=== PATIENT | male | born 1995 | race Two or more races ===

== ENCOUNTER → 2021-10-19 | Outpatient (REF) | payer MEDICAID ==
[2021-10-19 18:01] LABS: ALBUMIN 3.9 GM/DL (3.2-5.2); ALT/SGPT 84 U/L (12-78); BILIRUBIN,DIRECT < 0.1 MG/DL (0.0-0.2); BILIRUBIN,TOTAL 0.3 MG/DL (0.2-1.0); TOTAL PROTEIN 8.1 GM/DL (6.4-8.2)
== END ==
LOC: M LABDRWAD 16:59
PROVIDERS: ATTEND Student in an Organized Health Care Education/Training Program
DX: R74.8 Abnormal levels of other serum enzymes (principal)

== ENCOUNTER 2022-01-19 20:08 | Inpatient (IN) | payer MEDICAID ==
[~2022-01-19] VITALS: Ht 142.2 cm; Wt 42.6 kg
[2022-01-19] MEDS ORDERED: LACO10SO GT (20:23)
[2022-01-19] MEDS ORDERED: GABA250S6 PO (20:23)
[2022-01-19] MEDS ORDERED: DORZ2SOL5 OS (20:23)
[2022-01-19] MEDS ORDERED: KEPP1SOL PO (20:23)
[2022-01-19] MEDS ORDERED: POLY510P14 (20:23)
[2022-01-19] MEDS ORDERED: SUCR1ORA GT (20:23)
[2022-01-19] MEDS ORDERED: DIAZ2.5G2 (20:23)
[2022-01-19] MEDS ORDERED: BACL10TA2 GT (20:23)
[2022-01-19] MEDS ORDERED: NS 500 ML IV ONE (21:50)
[2022-01-19] MEDS ORDERED: ACETAMINOPHEN IV ONE (21:50)
[2022-01-19] MEDS ORDERED: PIPERACILLIN/TAZOBACTAM SOD 3.375 GM in D5W MINI-BAG PLUS 50 ML IV ONE (21:55)
[2022-01-19 21:57] LABS: BASO % 0.2 % (0.0-1.0); EOS # 0.1 10^3/uL (0.0-0.5); EOS % 0.9 % (0.0-3.0); HEMATOCRIT 53.8 % (42.0-52.0); HEMOGLOBIN 17.9 g/dl (13.5-17.5); LYMPH # 1.1 10^3/uL (1.5-5.0); LYMPH % 12.5 % (24.0-44.0); MEAN CORPUSCULAR HEMOGLOBIN 28.9 pg (27.0-33.0); MEAN CORPUSCULAR HGB CONC 33.3 g/dl (32.0-36.5); MEAN CORPUSCULAR VOLUME 86.8 fl (80.0-96.0); MONO # 0.9 10^3/uL (0.0-0.8); MONO % 10.5 % (2.0-8.0); NEUTROPHILS # 6.7 10^3/uL (1.5-8.5); NEUTROPHILS % 75.7 % (36.0-66.0); PLATELET COUNT, AUTOMATED 180 10^3/uL (150-450); WHITE BLOOD COUNT 8.9 10^3/uL (4.0-10.0)
[2022-01-19 22:27] LABS: BLOOD UREA NITROGEN 8 MG/DL (7-18); CALCIUM LEVEL 9.8 MG/DL (8.5-10.1); CARBON DIOXIDE LEVEL 24 MEQ/L (21-32); CHLORIDE LEVEL 106 MEQ/L (98-107); CREATININE FOR GFR 0.73 MG/DL (0.70-1.30); GLOMERULAR FILTRATION RATE > 60.0 (>60); GLUCOSE, FASTING 133 MG/DL (70-100); POTASSIUM SERUM 5.5 MEQ/L (3.5-5.1); SODIUM LEVEL 136 MEQ/L (136-145)
[2022-01-19] MEDS ORDERED: HOME MED LIST COMPLETE! XX SCH (22:45)
[2022-01-20] MEDS: NS 1,000 ML IV SCH ×2 (00:35→15:52)
[2022-01-20] MEDS ORDERED: POTASSIUM CHLORIDE 10% LIQ 20 MEQ/15 ML UDC GT ONE (02:20)
[2022-01-20] MEDS: PIPERACILLIN/TAZOBACTAM SOD 3.375 GM in D5W MINI-BAG PLUS 50 ML IV SCH ×4 (05:00→23:10)
[2022-01-20] MEDS: HEPARIN SOD (PORCINE) 5000UNITS/ML 1ML VIAL/SYRINGE SQ SCH ×3 (05:20→23:10)
[2022-01-20] MEDS ORDERED: ACETAMINOPHEN *IV* 650 MG in IV 1 EA IV PRN (06:00)
[2022-01-20] MEDS: SUCRALFATE SUSP 1GM/10ML UD GT SCH ×4 (08:49→23:07)
[2022-01-20] MEDS: levETIRAcetam ORAL SOLUTION 500 MG/5 ML UDC GT SCH ×2 (08:49→23:07)
[2022-01-20] MEDS: PANTOPRAZOLE 40MG VIAL IV SCH (08:49)
[2022-01-20] MEDS ORDERED: LACOSAMIDE 50 MG TAB (VIMPAT) GT SCH (09:00)
[2022-01-20] MEDS: VIMPAT 10 MG/ML GT SCH ×2 (10:52→23:15)
[2022-01-20] MEDS: GABAPENTIN 250 MG/5 ML GT SCH ×2 (10:54→21:00)
[2022-01-20] MEDS: COSOPT OCUMETER PLUS 10ML (DORZOLAMIDE/TIMOLOL) OS SCH ×2 (12:50→23:08)
[2022-01-20 16:41] LABS: BASO % 0.4 % (0.0-1.0); EOS # 0.2 10^3/uL (0.0-0.5); EOS % 3.5 % (0.0-3.0); HEMATOCRIT 46.6 % (42.0-52.0); LYMPH # 1.9 10^3/uL (1.5-5.0); LYMPH % 36.9 % (24.0-44.0); MEAN CORPUSCULAR HEMOGLOBIN 28.5 pg (27.0-33.0); MEAN CORPUSCULAR HGB CONC 31.8 g/dl (32.0-36.5); MEAN CORPUSCULAR VOLUME 89.6 fl (80.0-96.0); MONO # 0.7 10^3/uL (0.0-0.8); MONO % 13.3 % (2.0-8.0); NEUTROPHILS # 2.3 10^3/uL (1.5-8.5); NEUTROPHILS % 45.9 % (36.0-66.0); PLATELET COUNT, AUTOMATED 145 10^3/uL (150-450); WHITE BLOOD COUNT 5.1 10^3/uL (4.0-10.0)
[2022-01-20 16:49] LABS: HEMOGLOBIN 14.8 g/dl (13.5-17.5)
[2022-01-20 17:12] LABS: ALT/SGPT 62 U/L (12-78); BILIRUBIN,TOTAL 0.4 MG/DL (0.2-1.0); BLOOD UREA NITROGEN 7 MG/DL (7-18); CALCIUM LEVEL 8.6 MG/DL (8.5-10.1); CARBON DIOXIDE LEVEL 24 MEQ/L (21-32); CHLORIDE LEVEL 113 MEQ/L (98-107); CREATININE FOR GFR 0.67 MG/DL (0.70-1.30); GLOMERULAR FILTRATION RATE > 60.0 (>60); GLUCOSE, FASTING 103 MG/DL (70-100); MAGNESIUM LEVEL 2.1 MG/DL (1.8-2.4); POTASSIUM SERUM 4.1 MEQ/L (3.5-5.1); SODIUM LEVEL 141 MEQ/L (136-145); TOTAL PROTEIN 7.2 GM/DL (6.4-8.2)
[2022-01-20 20:34] VITALS: BP 121/67
[2022-01-21] VITALS (17 sets, daily range): BP systolic 97–106; BP diastolic 54–64; O2SAT 92–96
[2022-01-21] MEDS: NS 1,000 ML IV SCH (04:30)
[2022-01-21] MEDS: PIPERACILLIN/TAZOBACTAM SOD 3.375 GM in D5W MINI-BAG PLUS 50 ML IV SCH ×4 (05:39→22:20)
[2022-01-21] MEDS: HEPARIN SOD (PORCINE) 5000UNITS/ML 1ML VIAL/SYRINGE SQ SCH ×3 (05:39→21:33)
[2022-01-21 05:59] LABS: BASO % 0.3 % (0.0-1.0); EOS # 0.2 10^3/uL (0.0-0.5); EOS % 3.3 % (0.0-3.0); HEMATOCRIT 41.7 % (42.0-52.0); HEMOGLOBIN 13.7 g/dl (13.5-17.5); LYMPH # 1.5 10^3/uL (1.5-5.0); MEAN CORPUSCULAR HGB CONC 32.9 g/dl (32.0-36.5); MEAN CORPUSCULAR VOLUME 88.2 fl (80.0-96.0); MONO # 0.7 10^3/uL (0.0-0.8); MONO % 11.5 % (2.0-8.0); NEUTROPHILS # 3.4 10^3/uL (1.5-8.5); NEUTROPHILS % 58.7 % (36.0-66.0); PLATELET COUNT, AUTOMATED 146 10^3/uL (150-450); RED BLOOD COUNT 4.73 10^6/uL (4.30-6.10); WHITE BLOOD COUNT 5.8 10^3/uL (4.0-10.0)
[2022-01-21 06:31] LABS: ALBUMIN 2.8 GM/DL (3.2-5.2); ALT/SGPT 55 U/L (12-78); BILIRUBIN,TOTAL 0.3 MG/DL (0.2-1.0); BLOOD UREA NITROGEN 7 MG/DL (7-18); CALCIUM LEVEL 8.6 MG/DL (8.5-10.1); CARBON DIOXIDE LEVEL 24 MEQ/L (21-32); CHLORIDE LEVEL 113 MEQ/L (98-107); CREATININE FOR GFR 0.54 MG/DL (0.70-1.30); GLOMERULAR FILTRATION RATE > 60.0 (>60); GLUCOSE, FASTING 106 MG/DL (70-100); SODIUM LEVEL 141 MEQ/L (136-145); TOTAL PROTEIN 6.3 GM/DL (6.4-8.2)
[2022-01-21 08:48] LABS: C REACTIVE PROTEIN QUANTITATIV 4.19 MG/DL (0.00-0.30)
[2022-01-21] MEDS: POTASSIUM CHLORIDE 10% LIQ 20 MEQ/15 ML UDC PO SCH (10:12)
[2022-01-21] MEDS: SUCRALFATE SUSP 1GM/10ML UD GT SCH ×4 (10:13→21:34)
[2022-01-21] MEDS: levETIRAcetam ORAL SOLUTION 500 MG/5 ML UDC GT SCH ×2 (10:13→21:33)
[2022-01-21] MEDS: PANTOPRAZOLE 40MG VIAL IV SCH (10:16)
[2022-01-21] MEDS: VIMPAT 10 MG/ML GT SCH ×2 (10:23→21:00)
[2022-01-21] MEDS: COSOPT OCUMETER PLUS 10ML (DORZOLAMIDE/TIMOLOL) OS SCH ×2 (10:23→21:39)
[2022-01-21] MEDS: GABAPENTIN 250 MG/5 ML GT SCH ×2 (11:40→21:38)
[2022-01-22] VITALS (14 sets, daily range): BP systolic 93–120; BP diastolic 50–65; O2SAT 93–98
[2022-01-22] MEDS: PIPERACILLIN/TAZOBACTAM SOD 3.375 GM in D5W MINI-BAG PLUS 50 ML IV SCH ×3 (05:20→16:35)
[2022-01-22] MEDS: HEPARIN SOD (PORCINE) 5000UNITS/ML 1ML VIAL/SYRINGE SQ SCH ×3 (05:28→22:00)
[2022-01-22 06:01] LABS: BASO % 0.4 % (0.0-1.0); EOS # 0.3 10^3/uL (0.0-0.5); HEMATOCRIT 46.7 % (42.0-52.0); HEMOGLOBIN 15.1 g/dl (13.5-17.5); LYMPH # 2.4 10^3/uL (1.5-5.0); LYMPH % 47.5 % (24.0-44.0); MEAN CORPUSCULAR HEMOGLOBIN 28.2 pg (27.0-33.0); MEAN CORPUSCULAR HGB CONC 32.3 g/dl (32.0-36.5); MEAN CORPUSCULAR VOLUME 87.1 fl (80.0-96.0); MONO # 0.7 10^3/uL (0.0-0.8); MONO % 13.7 % (2.0-8.0); NEUTROPHILS # 1.7 10^3/uL (1.5-8.5); NEUTROPHILS % 33.2 % (36.0-66.0); PLATELET COUNT, AUTOMATED 166 10^3/uL (150-450); RED BLOOD COUNT 5.36 10^6/uL (4.30-6.10); WHITE BLOOD COUNT 5.1 10^3/uL (4.0-10.0)
[2022-01-22 06:40] LABS: ALBUMIN 3.1 GM/DL (3.2-5.2); ALT/SGPT 52 U/L (12-78); BILIRUBIN,TOTAL 0.3 MG/DL (0.2-1.0); BLOOD UREA NITROGEN 7 MG/DL (7-18); CALCIUM LEVEL 9.4 MG/DL (8.5-10.1); CARBON DIOXIDE LEVEL 24 MEQ/L (21-32); CHLORIDE LEVEL 109 MEQ/L (98-107); CREATININE FOR GFR 0.58 MG/DL (0.70-1.30); GLOMERULAR FILTRATION RATE > 60.0 (>60); GLUCOSE, FASTING 106 MG/DL (70-100); SODIUM LEVEL 142 MEQ/L (136-145); TOTAL PROTEIN 7.1 GM/DL (6.4-8.2)
[2022-01-22] MEDS: PANTOPRAZOLE 40MG VIAL IV SCH (08:58)
[2022-01-22] MEDS: levETIRAcetam ORAL SOLUTION 500 MG/5 ML UDC GT SCH (09:01)
[2022-01-22] MEDS: SUCRALFATE SUSP 1GM/10ML UD GT SCH ×3 (09:01→18:00)
[2022-01-22] MEDS: GABAPENTIN 250 MG/5 ML GT SCH (09:02)
[2022-01-22] MEDS: COSOPT OCUMETER PLUS 10ML (DORZOLAMIDE/TIMOLOL) OS SCH ×2 (09:02→22:24)
[2022-01-22] MEDS: POTASSIUM CHLORIDE 10% LIQ 20 MEQ/15 ML UDC PO SCH (09:02)
[2022-01-22] MEDS: VIMPAT 10 MG/ML GT SCH (09:11)
[2022-01-22] MEDS: BACLOFEN 10 MG TAB GT SCH ×2 (12:00→16:34)
[2022-01-22 23:09] LABS: HEMOGLOBIN 16.3 g/dl (13.5-17.5); MEAN CORPUSCULAR HEMOGLOBIN 28.3 pg (27.0-33.0); MEAN CORPUSCULAR VOLUME 88.7 fl (80.0-96.0); PLATELET COUNT, AUTOMATED 166 10^3/uL (150-450); RED BLOOD COUNT 5.75 10^6/uL (4.30-6.10)
[2022-01-23] VITALS (20 sets, daily range): BP systolic 99–127; BP diastolic 57–94; O2SAT 92–100
[2022-01-23] MEDS: levETIRAcetam ORAL SOLUTION 500 MG/5 ML UDC GT SCH ×3 (01:01→22:21)
[2022-01-23] MEDS: PIPERACILLIN/TAZOBACTAM SOD 3.375 GM in D5W MINI-BAG PLUS 50 ML IV SCH ×3 (01:01→10:03)
[2022-01-23] MEDS: BACLOFEN 10 MG TAB GT SCH ×4 (01:01→22:20)
[2022-01-23] MEDS: SUCRALFATE SUSP 1GM/10ML UD GT SCH ×5 (01:02→22:20)
[2022-01-23] MEDS: GABAPENTIN 250 MG/5 ML GT SCH ×3 (01:02→22:21)
[2022-01-23] MEDS: VIMPAT 10 MG/ML GT SCH ×3 (01:03→22:20)
[2022-01-23 06:58] LABS: BASO % 0.6 % (0.0-1.0); EOS # 0.2 10^3/uL (0.0-0.5); EOS % 4.3 % (0.0-3.0); HEMATOCRIT 47.3 % (42.0-52.0); HEMOGLOBIN 15.5 g/dl (13.5-17.5); LYMPH # 1.8 10^3/uL (1.5-5.0); LYMPH % 33.8 % (24.0-44.0); MEAN CORPUSCULAR HEMOGLOBIN 28.3 pg (27.0-33.0); MEAN CORPUSCULAR HGB CONC 32.8 g/dl (32.0-36.5); MEAN CORPUSCULAR VOLUME 86.5 fl (80.0-96.0); MONO # 0.6 10^3/uL (0.0-0.8); MONO % 11.2 % (2.0-8.0); NEUTROPHILS # 2.7 10^3/uL (1.5-8.5); NEUTROPHILS % 49.7 % (36.0-66.0); PLATELET COUNT, AUTOMATED 196 10^3/uL (150-450); RED BLOOD COUNT 5.47 10^6/uL (4.30-6.10); WHITE BLOOD COUNT 5.4 10^3/uL (4.0-10.0)
[2022-01-23 07:13] LABS: INR 0.94
[2022-01-23 07:14] LABS: PARTIAL THROMBOPLASTIN TIME 38.9 SECONDS (25.9-37.0)
[2022-01-23 07:27] LABS: ALBUMIN 3.1 GM/DL (3.2-5.2); ALT/SGPT 49 U/L (12-78); BILIRUBIN,TOTAL 0.3 MG/DL (0.2-1.0); BLOOD UREA NITROGEN 7 MG/DL (7-18); CALCIUM LEVEL 9.4 MG/DL (8.5-10.1); CARBON DIOXIDE LEVEL 24 MEQ/L (21-32); CHLORIDE LEVEL 107 MEQ/L (98-107); CREATININE FOR GFR 0.64 MG/DL (0.70-1.30); GLOMERULAR FILTRATION RATE > 60.0 (>60); GLUCOSE, FASTING 132 MG/DL (70-100); POTASSIUM SERUM 3.7 MEQ/L (3.5-5.1); SODIUM LEVEL 140 MEQ/L (136-145); TOTAL PROTEIN 7.8 GM/DL (6.4-8.2)
[2022-01-23] MEDS: PANTOPRAZOLE 40MG VIAL IV SCH (10:02)
[2022-01-23] MEDS: POTASSIUM CHLORIDE 10% LIQ 20 MEQ/15 ML UDC PO SCH (10:05)
[2022-01-23] MEDS: COSOPT OCUMETER PLUS 10ML (DORZOLAMIDE/TIMOLOL) OS SCH ×2 (10:06→22:21)
[2022-01-23] MEDS ORDERED: OXYMETAZOLINE 0.05% NASAL SPRAY (AFRIN) STA (13:22)
[2022-01-23 13:41] LABS: HEMATOCRIT 50.7 % (42.0-52.0); HEMOGLOBIN 16.2 g/dl (13.5-17.5); MEAN CORPUSCULAR HEMOGLOBIN 28.3 pg (27.0-33.0); MEAN CORPUSCULAR VOLUME 88.5 fl (80.0-96.0); PLATELET COUNT, AUTOMATED 204 10^3/uL (150-450); RED BLOOD COUNT 5.73 10^6/uL (4.30-6.10); WHITE BLOOD COUNT 6.1 10^3/uL (4.0-10.0)
[2022-01-23 13:56] LABS: INR 0.97; PROTHROMBIN TIME 13.3 SECONDS (12.7-14.5)
[2022-01-23 13:57] LABS: PARTIAL THROMBOPLASTIN TIME 35.4 SECONDS (25.9-37.0)
[2022-01-23 14:04] LABS: ALBUMIN 3.5 GM/DL (3.2-5.2); ALT/SGPT 52 U/L (12-78); BILIRUBIN,TOTAL 0.4 MG/DL (0.2-1.0); BLOOD UREA NITROGEN 7 MG/DL (7-18); CALCIUM LEVEL 9.9 MG/DL (8.5-10.1); CARBON DIOXIDE LEVEL 22 MEQ/L (21-32); CHLORIDE LEVEL 108 MEQ/L (98-107); CREATININE FOR GFR 0.76 MG/DL (0.70-1.30); GLOMERULAR FILTRATION RATE > 60.0 (>60); GLUCOSE, FASTING 119 MG/DL (70-100); POTASSIUM SERUM 4.6 MEQ/L (3.5-5.1); SODIUM LEVEL 141 MEQ/L (136-145); TOTAL PROTEIN 7.9 GM/DL (6.4-8.2)
[2022-01-24] VITALS (23 sets, daily range): BP systolic 111–140; BP diastolic 57–89; O2SAT 94–100
[2022-01-24 06:38] LABS: BASO % 0.4 % (0.0-1.0); EOS # 0.1 10^3/uL (0.0-0.5); EOS % 2.6 % (0.0-3.0); HEMOGLOBIN 16.1 g/dl (13.5-17.5); LYMPH # 1.6 10^3/uL (1.5-5.0); LYMPH % 36.1 % (24.0-44.0); MEAN CORPUSCULAR HEMOGLOBIN 28.7 pg (27.0-33.0); MEAN CORPUSCULAR HGB CONC 32.9 g/dl (32.0-36.5); MEAN CORPUSCULAR VOLUME 87.3 fl (80.0-96.0); MONO # 0.5 10^3/uL (0.0-0.8); NEUTROPHILS # 2.2 10^3/uL (1.5-8.5); NEUTROPHILS % 49.5 % (36.0-66.0); PLATELET COUNT, AUTOMATED 214 10^3/uL (150-450); RED BLOOD COUNT 5.61 10^6/uL (4.30-6.10); WHITE BLOOD COUNT 4.5 10^3/uL (4.0-10.0)
[2022-01-24 07:09] LABS: ALBUMIN 3.2 GM/DL (3.2-5.2); ALT/SGPT 49 U/L (12-78); BILIRUBIN,TOTAL 0.3 MG/DL (0.2-1.0); BLOOD UREA NITROGEN 6 MG/DL (7-18); CALCIUM LEVEL 9.6 MG/DL (8.5-10.1); CARBON DIOXIDE LEVEL 21 MEQ/L (21-32); CHLORIDE LEVEL 107 MEQ/L (98-107); CREATININE FOR GFR 0.55 MG/DL (0.70-1.30); GLOMERULAR FILTRATION RATE > 60.0 (>60); GLUCOSE, FASTING 112 MG/DL (70-100); POTASSIUM SERUM 4.1 MEQ/L (3.5-5.1); SODIUM LEVEL 139 MEQ/L (136-145); TOTAL PROTEIN 7.5 GM/DL (6.4-8.2)
[2022-01-24] MEDS: levETIRAcetam ORAL SOLUTION 500 MG/5 ML UDC GT SCH ×2 (09:54→20:24)
[2022-01-24] MEDS: BACLOFEN 10 MG TAB GT SCH ×3 (09:56→20:24)
[2022-01-24] MEDS: POTASSIUM CHLORIDE 10% LIQ 20 MEQ/15 ML UDC PO SCH (09:56)
[2022-01-24] MEDS: SUCRALFATE SUSP 1GM/10ML UD GT SCH ×4 (09:56→20:24)
[2022-01-24] MEDS: GABAPENTIN 250 MG/5 ML GT SCH ×2 (09:57→20:25)
[2022-01-24] MEDS: PANTOPRAZOLE 40MG VIAL IV SCH (09:57)
[2022-01-24] MEDS: COSOPT OCUMETER PLUS 10ML (DORZOLAMIDE/TIMOLOL) OS SCH ×2 (10:10→21:00)
[2022-01-24] MEDS: VIMPAT 10 MG/ML GT SCH ×2 (10:13→21:40)
[2022-01-24] MEDS ORDERED: propofoL 200 MG/20 ML VIAL As Ordered ONE (13:05)
[2022-01-24] MEDS ORDERED: dexameTHASONE 4 MG/ML 1ML VIAL (J1100 PER 1MG) As Ordered ONE (13:05)
[2022-01-24] MEDS ORDERED: ROCURONIUM BROMIDE 50 MG/5 ML VIAL As Ordered ONE ×2 (13:05→15:01)
[2022-01-24] MEDS ORDERED: ONDANSETRON 4MG/2ML VIAL As Ordered ONE (13:05)
[2022-01-24] MEDS ORDERED: LIDOCAINE 2% 100MG/5ML SDV (FOR ANES.) As Ordered ONE (13:05)
[2022-01-24] MEDS ORDERED: PIPERACILLIN/TAZOBACTAM SOD 4.5 GM in D5W MINI-BAG PLUS 50 ML IV SCH ×3 (14:00)
[2022-01-24] MEDS ORDERED: KETAMINE HCL 200 MG/20 ML VIAL As Ordered ONE (14:21)
[2022-01-24] MEDS ORDERED: MIDAZOLAM INJ 2MG/2ML VIAL (J2250 PER 1MG) As Ordered ONE (14:22)
[2022-01-24] MEDS ORDERED: fentaNYL 100 MCG/2 ML INJECTION As Ordered ONE (14:22)
[2022-01-24] MEDS ORDERED: SUGAMMADEX SODIUM 500 MG/5 ML VIAL (BRIDION) As Ordered ONE (14:33)
[2022-01-24] MEDS ORDERED: LIDOCAINE W/EPINEPHRINE 1% 20ML VIAL As Ordered ONE (14:57)
[2022-01-24] MEDS ORDERED: PHENYLephrine 500MCG 5ML (100MCG/ML) SYRINGE As Ordered ONE (15:09)
[2022-01-24] MEDS ORDERED: ONDANSETRON 4MG/2ML VIAL IV PRN (16:05)
[2022-01-24] MEDS ORDERED: fentaNYL 100 MCG/2 ML INJECTION IV PRN (16:05)
[2022-01-24] MEDS ORDERED: D5W/LR 1,000 ML IV SCH (18:45)
[2022-01-24] MEDS: PIPERACILLIN/TAZOBACTAM SOD 4.5 GM in D5W MINI-BAG PLUS 50 ML IV SCH (23:56)
[2022-01-25] VITALS (30 sets, daily range): BP systolic 114–170; BP diastolic 55–93
[2022-01-25 05:08] LABS: BASO % 0.1 % (0.0-1.0); HEMATOCRIT 42.4 % (42.0-52.0); LYMPH # 1.7 10^3/uL (1.5-5.0); LYMPH % 21.6 % (24.0-44.0); MEAN CORPUSCULAR HEMOGLOBIN 28.3 pg (27.0-33.0); MEAN CORPUSCULAR HGB CONC 32.5 g/dl (32.0-36.5); MEAN CORPUSCULAR VOLUME 87.1 fl (80.0-96.0); MONO # 0.9 10^3/uL (0.0-0.8); MONO % 11.4 % (2.0-8.0); NEUTROPHILS # 5.3 10^3/uL (1.5-8.5); NEUTROPHILS % 66.4 % (36.0-66.0); PLATELET COUNT, AUTOMATED 208 10^3/uL (150-450); RED BLOOD COUNT 4.87 10^6/uL (4.30-6.10)
[2022-01-25] MEDS: PIPERACILLIN/TAZOBACTAM SOD 4.5 GM in D5W MINI-BAG PLUS 50 ML IV SCH ×4 (05:12→23:51)
[2022-01-25 05:18] LABS: HEMOGLOBIN 13.8 g/dl (13.5-17.5)
[2022-01-25 05:41] LABS: ALBUMIN 2.8 GM/DL (3.2-5.2); ALT/SGPT 41 U/L (12-78); BILIRUBIN,TOTAL 0.3 MG/DL (0.2-1.0); BLOOD UREA NITROGEN 5 MG/DL (7-18); CALCIUM LEVEL 9.4 MG/DL (8.5-10.1); CARBON DIOXIDE LEVEL 24 MEQ/L (21-32); CHLORIDE LEVEL 109 MEQ/L (98-107); CREATININE FOR GFR 0.69 MG/DL (0.70-1.30); GLOMERULAR FILTRATION RATE > 60.0 (>60); GLUCOSE, FASTING 193 MG/DL (70-100); POTASSIUM SERUM 3.6 MEQ/L (3.5-5.1); SODIUM LEVEL 141 MEQ/L (136-145); TOTAL PROTEIN 7.3 GM/DL (6.4-8.2)
[2022-01-25] MEDS ORDERED: LACTOBACILLUS ACIDOPHILUS CAP (BACID) PO SCH (08:00)
[2022-01-25] MEDS: PANTOPRAZOLE 40MG VIAL IV SCH (08:04)
[2022-01-25] MEDS: SUCRALFATE SUSP 1GM/10ML UD GT SCH ×4 (08:04→21:08)
[2022-01-25] MEDS: POTASSIUM CHLORIDE 10% LIQ 20 MEQ/15 ML UDC PO SCH (09:11)
[2022-01-25] MEDS: levETIRAcetam ORAL SOLUTION 500 MG/5 ML UDC GT SCH ×2 (09:12→21:09)
[2022-01-25] MEDS: BACLOFEN 10 MG TAB GT SCH ×3 (09:15→21:09)
[2022-01-25] MEDS: COSOPT OCUMETER PLUS 10ML (DORZOLAMIDE/TIMOLOL) OS SCH ×2 (09:15→21:20)
[2022-01-25] MEDS: VIMPAT 10 MG/ML GT SCH ×2 (09:15→21:17)
[2022-01-25] MEDS ORDERED: MORPHINE 2 MG/ML 1ML VIAL IV PRN (09:15)
[2022-01-25] MEDS: GABAPENTIN 250 MG/5 ML GT SCH ×2 (09:16→21:18)
[2022-01-26] VITALS: BP 129/86
[2022-01-26 04:00] VITALS: BP 108/61
[2022-01-26 05:46] LABS: HEMATOCRIT 44.2 % (42.0-52.0); HEMOGLOBIN 14.5 g/dl (13.5-17.5); MEAN CORPUSCULAR HEMOGLOBIN 28.7 pg (27.0-33.0); MEAN CORPUSCULAR HGB CONC 32.8 g/dl (32.0-36.5); MEAN CORPUSCULAR VOLUME 87.4 fl (80.0-96.0); PLATELET COUNT, AUTOMATED 209 10^3/uL (150-450); RED BLOOD COUNT 5.06 10^6/uL (4.30-6.10); WHITE BLOOD COUNT 6.9 10^3/uL (4.0-10.0)
[2022-01-26] MEDS: PIPERACILLIN/TAZOBACTAM SOD 4.5 GM in D5W MINI-BAG PLUS 50 ML IV SCH ×2 (06:14→12:00)
[2022-01-26 06:21] LABS: ALBUMIN 2.9 GM/DL (3.2-5.2); ALT/SGPT 36 U/L (12-78); BILIRUBIN,TOTAL 0.3 MG/DL (0.2-1.0); BLOOD UREA NITROGEN 6 MG/DL (7-18); CALCIUM LEVEL 8.9 MG/DL (8.5-10.1); CARBON DIOXIDE LEVEL 26 MEQ/L (21-32); CHLORIDE LEVEL 108 MEQ/L (98-107); CREATININE FOR GFR 0.72 MG/DL (0.70-1.30); GLOMERULAR FILTRATION RATE > 60.0 (>60); GLUCOSE, FASTING 152 MG/DL (70-100); POTASSIUM SERUM 3.7 MEQ/L (3.5-5.1); SODIUM LEVEL 141 MEQ/L (136-145)
[2022-01-26] MEDS ORDERED: AMOX400S PEG (08:05)
[2022-01-26 08:33] VITALS: BP 103/66
[2022-01-26] MEDS: levETIRAcetam ORAL SOLUTION 500 MG/5 ML UDC GT SCH (09:13)
[2022-01-26] MEDS: POTASSIUM CHLORIDE 10% LIQ 20 MEQ/15 ML UDC PO SCH (09:14)
[2022-01-26] MEDS: BACLOFEN 10 MG TAB GT SCH (09:14)
[2022-01-26] MEDS: SUCRALFATE SUSP 1GM/10ML UD GT SCH ×2 (09:14→12:00)
[2022-01-26] MEDS: VIMPAT 10 MG/ML GT SCH (09:18)
[2022-01-26] MEDS: PANTOPRAZOLE 40MG VIAL IV SCH (09:19)
[2022-01-26] MEDS: GABAPENTIN 250 MG/5 ML GT SCH (09:19)
[2022-01-26] MEDS: COSOPT OCUMETER PLUS 10ML (DORZOLAMIDE/TIMOLOL) OS SCH (09:19)
[2022-01-26] MEDS ORDERED: SALI0.6530 NARES (10:15)
[2022-01-26] MEDS ORDERED: ACET650S3 PR (10:15)
== END 2022-01-26 14:17 | disposition home health service (06) | DRG 121 ==
LOC: M ED 20:08 → M ED INP 23:41 → M PCU 01-20 20:43 → M ICU 01-24 16:37 → M PCU 01-25 17:38
PROVIDERS: ADMIT Family Medicine; ATTEND Internal Medicine
PROC: 2Y41X5Z Packing of Nasal Region using Packing Material (ICD-10-PCS; principal; 2022-01-23)
PROC: 093K8ZZ Control Bleeding in Nasal Mucosa and Soft Tissue, Via Natural or Artificial Opening Endoscopic (ICD-10-PCS; 2022-01-24)
PROC: 09D Ear, Nose, Sinus, Extraction (ICD-10-PCS; 2022-01-24)
DX: J69.0 Pneumonitis due to inhalation of food and vomit (principal); R13.10 Dysphagia, unspecified; J98.11 Atelectasis; Z93.1 Gastrostomy status; G80.1 Spastic diplegic cerebral palsy; Z99.2 Dependence on renal dialysis; E73.9 Lactose intolerance, unspecified; E87.6 Hypokalemia; H40.9 Unspecified glaucoma; R04.0 Epistaxis; K21.9 Gastro-esophageal reflux disease without esophagitis; Z79.899 Other long term (current) drug therapy

== ENCOUNTER → 2022-02-27 | Outpatient (POV) | payer MEDICAID ==
[~2022-02-27] VITALS: Ht 139.7 cm; Wt 40.9 kg
[~2022-02-27] MED LIST: ACET650S3 PR; AMOX400S PEG; BACL10TA2 GT; DIAZ2.5G2; DORZ2SOL5 OS; GABA250S6 PO; KEPP1SOL PO; LACO10SO GT; POLY510P14; SALI0.6530 NARES; SUCR1ORA GT
[2022-02-27 11:05] VITALS: BP 133/95
== END ==
LOC: M IRPOV 10:45
PROVIDERS: ATTEND Radiology Diagnostic Radiology
DX: G80.9 Cerebral palsy, unspecified (principal); Z79.899 Other long term (current) drug therapy; Z93.1 Gastrostomy status

== ENCOUNTER → 2022-03-11 | Outpatient (CLI) | payer MEDICAID | LOC: M LABSMTC 11:51 | PROVIDERS: ATTEND Anesthesiology | DX: Z01.818 Encounter for other preprocedural examination (principal); Z11.52 Encounter for screening for COVID-19 ==

== ENCOUNTER → 2022-03-15 | Outpatient (CLI) | payer MEDICAID ==
[~2022-03-15] MED LIST changes: +ISOVUE-300 61% 50ML VIAL As Ordered ONE; +LIDOCAINE 1% MDV 20ML VIAL As Ordered ONE
[2022-03-15 12:20] VITALS: BP 113/80
== END ==
LOC: M IRPRO 10:59
PROVIDERS: ATTEND Radiology Diagnostic Radiology
DX: K94.23 Gastrostomy malfunction (principal)
CPT/HCPCS: 43762; C1729; C1769; Q9967

== ENCOUNTER 2022-05-25 10:15 | Emergency (ER) | payer MEDICAID ==
[~2022-05-25 10:15] MED LIST changes: -ISOVUE-300 61% 50ML VIAL As Ordered ONE; -LIDOCAINE 1% MDV 20ML VIAL As Ordered ONE
[2022-05-25] MEDS ORDERED: LACOSAMIDE 10MG/ML 20ML VIAL (VIMPAT) IV STA (13:17)
[2022-05-25] MEDS ORDERED: levETIRAcetam INJection 1,000 MG in D5W 100 ML IV ONE (13:20)
[2022-05-25 13:42] LABS: RSV AMPLIFICATION NEGATIVE (NEGATIVE)
[2022-05-25 16:14] VITALS: BP 127/98
[2022-05-26] MEDS ORDERED: CLIN1SOL24 PO (15:11)
== END 2022-05-25 16:34 | disposition short-term general hospital (02) ==
LOC: M ED 10:15
DX: K94.23 Gastrostomy malfunction (principal); G80.9 Cerebral palsy, unspecified; Z88.6 Allergy status to analgesic agent; Z88.8 Allergy status to other drugs, medicaments and biological substances; Z91.040 Latex allergy status

== ENCOUNTER 2022-05-26 13:00 | Emergency (ER) | payer MEDICAID ==
[2022-05-26 14:33] LABS: BASO % 0.2 % (0.0-1.0); EOS % 0.1 % (0.0-3.0); HEMATOCRIT 51.8 % (42.0-52.0); HEMOGLOBIN 17.1 g/dl (13.5-17.5); LYMPH # 1.7 10^3/uL (1.5-5.0); LYMPH % 14.3 % (24.0-44.0); MEAN CORPUSCULAR HEMOGLOBIN 27.8 pg (27.0-33.0); MEAN CORPUSCULAR VOLUME 84.1 fl (80.0-96.0); MONO % 12.8 % (2.0-8.0); NEUTROPHILS # 8.6 10^3/uL (1.5-8.5); NEUTROPHILS % 72.1 % (36.0-66.0); PLATELET COUNT, AUTOMATED 172 10^3/uL (150-450); RED BLOOD COUNT 6.16 10^6/uL (4.30-6.10); WHITE BLOOD COUNT 11.9 10^3/uL (4.0-10.0)
[2022-05-26] MEDS ORDERED: LIDOCAINE 1% SDV 5ML VIAL DILUENT ONE (14:40)
[2022-05-26] MEDS ORDERED: cefTRIAXone SOD 1GM VIAL (J0696 PER 250MG) IM ONE (14:40)
[2022-05-26] MEDS ORDERED: CLIN1SOL24 PO (15:11)
[2022-05-26 15:19] LABS: MONO # 1.5 10^3/uL (0.0-0.8)
[2022-05-26 15:41] VITALS: BP 120/72
== END 2022-05-26 15:58 | disposition home or self-care (01) ==
LOC: M ED 13:00
DX: R50.9 Fever, unspecified (principal); G80.9 Cerebral palsy, unspecified; G40.909 Epilepsy, unspecified, not intractable, without status epilepticus; R91.8 Other nonspecific abnormal finding of lung field; Z93.1 Gastrostomy status
CPT/HCPCS: 71046; 80047; 85025; 87040; 96372; 99283; J0696

== ENCOUNTER → 2022-12-25 | Outpatient (POV) | payer MEDICAID ==
[~2022-12-25] VITALS: Ht 121.9 cm; Wt 43.0 kg
[~2022-12-25] MED LIST changes: +CLIN1SOL24 PO
[2022-12-25 10:35] VITALS: BP 125/78
== END ==
LOC: M IRPOV 10:25
PROVIDERS: ATTEND Radiology Diagnostic Radiology
DX: G80.9 Cerebral palsy, unspecified (principal); K94.29 Other complications of gastrostomy; Z88.6 Allergy status to analgesic agent; Z88.1 Allergy status to other antibiotic agents; Z88.8 Allergy status to other drugs, medicaments and biological substances; Z91.040 Latex allergy status

== ENCOUNTER → 2022-12-31 | Outpatient (CLI) | payer MEDICAID ==
[2022-12-31 17:12] LABS: C REACTIVE PROTEIN QUANTITATIV 0.6 MG/DL (<1.0)
[2022-12-31 17:13] LABS: THYROID STIMULATING HORMONE 3.627 uIU/ML (0.55-4.78)
[2022-12-31 17:14] LABS: FREE T4 0.93 NG/DL (0.89-1.76)
== END ==
LOC: M WUC 12:03
PROVIDERS: ATTEND Physician Assistant Medical
DX: R19.7 Diarrhea, unspecified (principal)

== ENCOUNTER → 2023-01-14 | Outpatient (CLI) | payer MEDICAID ==
[~2023-01-14] MED LIST changes: +GABA250S6 GT; -GABA250S6 PO; +ISOVUE-300 61% 100ML VIAL As Ordered ONE; +KEPP1SOL GT; -KEPP1SOL PO; +LIDOCAINE 1% MDV 20ML VIAL As Ordered ONE
[2023-01-14 13:00] VITALS: BP 99/68
== END ==
LOC: M IRPRO 11:23
PROVIDERS: ATTEND Radiology Diagnostic Radiology
DX: Z43.1 Encounter for attention to gastrostomy (principal); G80.9 Cerebral palsy, unspecified
CPT/HCPCS: 49452; C1729; C1769; Q9967

== ENCOUNTER → 2023-01-23 | Outpatient (CLI) | payer MEDICAID ==
[~2023-01-23] MED LIST changes: -ISOVUE-300 61% 100ML VIAL As Ordered ONE; -LIDOCAINE 1% MDV 20ML VIAL As Ordered ONE
== END ==
LOC: M WUC 11:26
PROVIDERS: ATTEND Family Medicine
DX: M25.552 Pain in left hip (principal)

== ENCOUNTER 2023-02-01 09:30 | Inpatient (IN) | payer MEDICAID ==
[~2023-02-01] VITALS: Ht 139.7 cm; Wt 47.9 kg
[2023-02-01] MEDS ORDERED: NS 1,000 ML IV ONE ×2 (09:45→13:45)
[2023-02-01] MEDS ORDERED: ALBUTEROL SULFATE 2.5MG/0.5ML INH NEB SOLN INH ONE (09:45)
[2023-02-01] MEDS ORDERED: IPRATROPIUM 0.5MG/ALBUTEROL 2.5MG INH SOL UD 3ML (DUONEB) NEB ONE (09:45)
[2023-02-01 10:10] LABS: ABG BASE EXCESS 9.8 (-2.0-2.0); ABG HCO3 36.1 MMOL/L (22.0-26.0); ABG O2 SATURATION 99.8 % (95.0-99.0); ABG PARTIAL PRESSURE CO2 52.9 mmHg (35.0-45.0); ABG STANDARD HCO3 33.7 MMOL/L. (22.0-26.0); ABG TOTAL CO2 37.7 MMOL/L (22.0-29.0); ABG pH (ARTERIAL) 7.452 UNITS (7.350-7.450)
[2023-02-01 11:17] LABS: BASO % 0.2 % (0.0-1.0); HEMATOCRIT 53.5 % (42.0-52.0); HEMOGLOBIN 17.6 g/dl (13.5-17.5); LYMPH # 0.9 10^3/uL (1.5-5.0); LYMPH % 5.8 % (24.0-44.0); MEAN CORPUSCULAR HEMOGLOBIN 27.8 pg (27.0-33.0); MEAN CORPUSCULAR HGB CONC 32.9 g/dl (32.0-36.5); MEAN CORPUSCULAR VOLUME 84.5 fl (80.0-96.0); MONO % 10.5 % (2.0-8.0); NEUTROPHILS # 12.3 10^3/uL (1.5-8.5); NEUTROPHILS % 83.2 % (36.0-66.0); PLATELET COUNT, AUTOMATED 231 10^3/uL (150-450); RED BLOOD COUNT 6.33 10^6/uL (4.30-6.10); WHITE BLOOD COUNT 14.8 10^3/uL (4.0-10.0)
[2023-02-01] MEDS ORDERED: DICY10CA13 GT (11:47)
[2023-02-01 11:51] LABS: MONO # 1.6 10^3/uL (0.0-0.8)
[2023-02-01 11:59] LABS: APPEARANCE, URINE CLOUDY (CLEAR); BACTERIA, URINE AUTO NEGATIVE (NEGATIVE); BILIRUBIN, URINE AUTO NEGATIVE (NEGATIVE); BLOOD, URINE BLOOD NEGATIVE (NEGATIVE); COLOR, URINE AMBER (YELLOW); GLUCOSE, URINE (UA) AUTO NEGATIVE (NEGATIVE); KETONE, URINE AUTO TRACE mg/dL (NEGATIVE); LEUKOCYTE ESTERASE, URINE AUTO NEGATIVE (NEGATIVE); NITRITE, URINE AUTO NEGATIVE (NEGATIVE); PROTEIN, URINE AUTO NEGATIVE (NEGATIVE); RBC, URINE AUTO 0 /HPF (0-3); SPECIFIC GRAVITY URINE AUTO 1.012 (1.002-1.035); SQUAMOUS EPITHELIAL CELL UR AU 0 /HPF (0-6); UROBILINOGEN, URINE AUTO 0.2 mg/dL (0.0-2.0); WBC, URINE AUTO 0 /HPF (0-3)
[2023-02-01] MEDS ORDERED: BACLOFEN 10 MG TAB PO ONE (12:25)
[2023-02-01] MEDS ORDERED: GABAPENTIN 100 MG CAP PEG ONE (12:25)
[2023-02-01 12:26] LABS: INR 0.97; PROTHROMBIN TIME 13.1 SECONDS (12.5-14.5)
[2023-02-01 12:27] LABS: PARTIAL THROMBOPLASTIN TIME 24.7 SECONDS (24.8-34.2)
[2023-02-01 12:56] LABS: CK-MB VALUE MASS < 1.0 NG/ML (<3.6)
[2023-02-01 12:57] LABS: AMYLASE 591 U/L (30-118)
[2023-02-01 12:58] LABS: ALBUMIN 2.8 G/DL (3.2-5.2); ALKALINE PHOSPHATASE 163 U/L (46-116); ALT/SGPT 57 U/L (7.0-40); AST/SGOT 34 U/L (<34); BILIRUBIN,DIRECT 0.2 MG/DL (<0.4); BILIRUBIN,TOTAL 0.5 MG/DL (0.3-1.2); BLOOD UREA NITROGEN 14 MG/DL (9-23); CALCIUM LEVEL 8.7 MG/DL (8.5-10.1); CARBON DIOXIDE LEVEL 30 MMOL/L (20-31); CHLORIDE LEVEL 100 MMOL/L (98-107); GLOMERULAR FILTRATION RATE > 60.0 (>60); GLUCOSE, FASTING 184 MG/DL (60-100); POTASSIUM SERUM 3.3 MMOL/L (3.5-5.1); SODIUM LEVEL 141 MMOL/L (136-145); TOTAL PROTEIN 7.5 G/DL (5.7-8.2)
[2023-02-01 12:59] LABS: CPK CREATINE PHOSPHOKINASE 36 U/L (46-171); MB/CK RELATIVE INDEX 2.77 (< OR =4)
[2023-02-01] MEDS ORDERED: NS 500 ML in IV 1 EA IV ONE (13:05)
[2023-02-01] MEDS ORDERED: PIPERACILLIN/TAZOBACTAM SOD 4.5 GM in D5W MINI-BAG PLUS 50 ML IV ONE (13:05)
[2023-02-01] MEDS ORDERED: PANTOPRAZOLE 40MG VIAL IV ONE (13:05)
[2023-02-01 14:07] LABS: LIPASE 1640 U/L (12-53)
[2023-02-01 14:26] LABS: CK-MB VALUE MASS < 1.0 NG/ML (<3.6)
[2023-02-01 14:28] LABS: CPK CREATINE PHOSPHOKINASE 44 U/L (46-171); MB/CK RELATIVE INDEX 2.27 (< OR =4)
[2023-02-01 14:57] LABS: TRIGLYCERIDES LEVEL 91 MG/DL (<150)
[2023-02-01] MEDS ORDERED: ONDANSETRON 4MG 2ML VIAL IV PRN (15:10)
[2023-02-01] MEDS ORDERED: HM S0.65 NARES (15:19)
[2023-02-01] MEDS ORDERED: MULTLIQ7 PO (15:31)
[2023-02-01] MEDS ORDERED: PYRI50TA8 GT (15:31)
[2023-02-01] MEDS ORDERED: PROBCAP14 PO (15:31)
[2023-02-01] MEDS ORDERED: OSCAL GT (15:31)
[2023-02-01] MEDS ORDERED: [UNRECOGNIZED DRUG - OTHER] GT (15:31)
[2023-02-01] MEDS ORDERED: PYRIDOXINE GT (15:31)
[2023-02-01] MEDS ORDERED: HOME MED LIST COMPLETE! XX SCH (15:35)
[2023-02-01] MEDS ORDERED: LIDOCAINE 1% MDV 20ML VIAL As Ordered ONE (15:40)
[2023-02-01] MEDS ORDERED: KCL 10MEQ/100ML SWI (KRUN) 10 MEQ in IV 1 EA IV ONE (16:00)
[2023-02-01] MEDS ORDERED: DICYCLOMINE 10 MG CAP GT PRN (17:40)
[2023-02-01] MEDS ORDERED: SODIUM CHLORIDE NASAL 0.65% SPRAY BTL (OCEAN) PRN (17:40)
[2023-02-01 18:00] VITALS: BP 156/105
[2023-02-01] MEDS ORDERED: PILL CUTTER 1 EACH XX PRN (18:10)
[2023-02-01] MEDS: ACETAMINOPHEN 650MG SUPP PR PRN (18:20)
[2023-02-01] MEDS ORDERED: LORazepam 2 MG/ML 1ML VIAL IV STA (19:42)
[2023-02-01] MEDS: levETIRAcetam INJection 1,000 MG in D5W 100 ML IV SCH (19:46)
[2023-02-01 19:51] VITALS: BP 157/98
[2023-02-01 20:18] LABS: BASO % 0.1 % (0.0-1.0); HEMOGLOBIN 16.1 g/dl (13.5-17.5); LYMPH # 0.9 10^3/uL (1.5-5.0); LYMPH % 5.8 % (24.0-44.0); MEAN CORPUSCULAR HEMOGLOBIN 27.6 pg (27.0-33.0); MEAN CORPUSCULAR HGB CONC 31.6 g/dl (32.0-36.5); MEAN CORPUSCULAR VOLUME 87.3 fl (80.0-96.0); MONO % 11.8 % (2.0-8.0); NEUTROPHILS # 12.4 10^3/uL (1.5-8.5); PLATELET COUNT, AUTOMATED 182 10^3/uL (150-450); RED BLOOD COUNT 5.84 10^6/uL (4.30-6.10); WHITE BLOOD COUNT 15.2 10^3/uL (4.0-10.0)
[2023-02-01] MEDS: PIPERACILLIN/TAZOBACTAM SOD 3.375 GM in D5W MINI-BAG PLUS 50 ML IV SCH (20:19)
[2023-02-01 20:24] LABS: ALBUMIN 2.7 G/DL (3.2-5.2); ALKALINE PHOSPHATASE 139 U/L (46-116); ALT/SGPT 50 U/L (7.0-40); AST/SGOT 38 U/L (<34); BILIRUBIN,TOTAL 0.6 MG/DL (0.3-1.2); BLOOD UREA NITROGEN 14 MG/DL (9-23); CALCIUM LEVEL 8.1 MG/DL (8.5-10.1); CARBON DIOXIDE LEVEL 28 MMOL/L (20-31); CHLORIDE LEVEL 103 MMOL/L (98-107); CREATININE FOR GFR 0.67 MG/DL (0.70-1.30); GLOMERULAR FILTRATION RATE > 60.0 (>60); GLUCOSE, FASTING 148 MG/DL (60-100); POTASSIUM SERUM 3.6 MMOL/L (3.5-5.1); SODIUM LEVEL 144 MMOL/L (136-145)
[2023-02-01 20:26] LABS: MONO # 1.8 10^3/uL (0.0-0.8)
[2023-02-01] MEDS ORDERED: LACOSAMIDE 10MG/ML 20ML VIAL (VIMPAT) IV STA ×2 (20:54→21:03)
[2023-02-01 21:00] VITALS: BP 131/76
[2023-02-01] MEDS: COSOPT OCUMETER PLUS 10ML (DORZOLAMIDE/TIMOLOL) OS SCH (21:00)
[2023-02-01] MEDS: BACLOFEN 10 MG TAB GT SCH (21:00)
[2023-02-01] MEDS ORDERED: LACOSAMIDE 50 MG TAB (VIMPAT) GT SCH (21:00)
[2023-02-01] MEDS: SUCRALFATE SUSP 1GM/10ML UD GT SCH (21:00)
[2023-02-01] MEDS: PANTOPRAZOLE 40MG VIAL IV SCH (22:06)
[2023-02-02] VITALS (18 sets, daily range): BP systolic 116–140; BP diastolic 59–82; O2SAT 88–96
[2023-02-02] MEDS: NS 1,000 ML IV SCH (00:47)
[2023-02-02] MEDS: PIPERACILLIN/TAZOBACTAM SOD 3.375 GM in D5W MINI-BAG PLUS 50 ML IV SCH ×4 (03:31→20:26)
[2023-02-02 07:03] LABS: ALBUMIN 2.2 G/DL (3.2-5.2); ALKALINE PHOSPHATASE 95 U/L (46-116); ALT/SGPT 33 U/L (7.0-40); AST/SGOT 25 U/L (<34); BILIRUBIN,TOTAL 0.7 MG/DL (0.3-1.2); BLOOD UREA NITROGEN 11 MG/DL (9-23); CALCIUM LEVEL 7.5 MG/DL (8.5-10.1); CARBON DIOXIDE LEVEL 32 MMOL/L (20-31); CHLORIDE LEVEL 107 MMOL/L (98-107); CREATININE FOR GFR 0.57 MG/DL (0.70-1.30); GLOMERULAR FILTRATION RATE > 60.0 (>60); GLUCOSE, FASTING 131 MG/DL (60-100); LIPASE 847 U/L (12-53); MAGNESIUM LEVEL 1.7 MG/DL (1.8-2.4); POTASSIUM SERUM 2.8 MMOL/L (3.5-5.1); SODIUM LEVEL 144 MMOL/L (136-145); TOTAL PROTEIN 5.7 G/DL (5.7-8.2)
[2023-02-02] MEDS: ACETAMINOPHEN 650MG SUPP PR PRN (07:05)
[2023-02-02 07:32] LABS: HEMATOCRIT 41.2 % (42.0-52.0); MEAN CORPUSCULAR HEMOGLOBIN 27.7 pg (27.0-33.0); MEAN CORPUSCULAR HGB CONC 32.3 g/dl (32.0-36.5); MEAN CORPUSCULAR VOLUME 85.8 fl (80.0-96.0); PLATELET COUNT, AUTOMATED 133 10^3/uL (150-450); WHITE BLOOD COUNT 11.8 10^3/uL (4.0-10.0)
[2023-02-02 07:36] LABS: HEMOGLOBIN 13.3 g/dl (13.5-17.5)
[2023-02-02] MEDS: KCL 20MEQ IN 100ML SWI (KRUN) 20 MEQ in IV 1 EA IV SCH ×4 (08:27→10:10)
[2023-02-02] MEDS: PANTOPRAZOLE 40MG VIAL IV SCH ×2 (08:27→20:27)
[2023-02-02] MEDS: PYRIDOXINE 50 MG TAB GT SCH ×2 (09:00→16:19)
[2023-02-02] MEDS: BACLOFEN 10 MG TAB GT SCH ×3 (09:00→20:27)
[2023-02-02] MEDS ORDERED: MAG SULF 1GM/100ML (MAG RUN) 1 GM in IV 1 EA IV ONE (09:00)
[2023-02-02] MEDS: levETIRAcetam INJection 1,000 MG in D5W 100 ML IV SCH ×2 (09:34→20:28)
[2023-02-02] MEDS: GABAPENTIN 100 MG CAP GT SCH ×2 (10:29→20:27)
[2023-02-02] MEDS: SUCRALFATE SUSP 1GM/10ML UD GT SCH ×2 (10:30→20:27)
[2023-02-02] MEDS: LACOSAMIDE 10MG/ML 20ML VIAL (VIMPAT) IV SCH ×2 (10:30→21:41)
[2023-02-02] MEDS: COSOPT OCUMETER PLUS 10ML (DORZOLAMIDE/TIMOLOL) OS SCH ×2 (11:02→20:28)
[2023-02-02] MEDS ORDERED: KCL 10MEQ/100ML SWI (KRUN) 10 MEQ in IV 1 EA IV ONE (18:00)
[2023-02-03] VITALS (25 sets, daily range): BP systolic 123–158; BP diastolic 75–96; O2SAT 91–95
[2023-02-03] MEDS: PIPERACILLIN/TAZOBACTAM SOD 3.375 GM in D5W MINI-BAG PLUS 50 ML IV SCH ×4 (03:30→19:55)
[2023-02-03] MEDS: NS 1,000 ML IV SCH ×2 (03:31→19:51)
[2023-02-03 06:14] LABS: BASO % 0.2 % (0.0-1.0); EOS # 0.1 10^3/uL (0.0-0.5); EOS % 0.6 % (0.0-3.0); HEMATOCRIT 35.5 % (42.0-52.0); HEMOGLOBIN 11.6 g/dl (13.5-17.5); LYMPH # 1.2 10^3/uL (1.5-5.0); LYMPH % 11.6 % (24.0-44.0); MEAN CORPUSCULAR HEMOGLOBIN 28.3 pg (27.0-33.0); MEAN CORPUSCULAR HGB CONC 32.7 g/dl (32.0-36.5); MEAN CORPUSCULAR VOLUME 86.6 fl (80.0-96.0); MONO # 1.2 10^3/uL (0.0-0.8); MONO % 11.4 % (2.0-8.0); NEUTROPHILS # 7.8 10^3/uL (1.5-8.5); NEUTROPHILS % 75.9 % (36.0-66.0); PLATELET COUNT, AUTOMATED 114 10^3/uL (150-450); WHITE BLOOD COUNT 10.2 10^3/uL (4.0-10.0)
[2023-02-03 06:37] LABS: LIPASE 182 U/L (12-53)
[2023-02-03 06:41] LABS: ALBUMIN 1.8 G/DL (3.2-5.2); ALKALINE PHOSPHATASE 75 U/L (46-116); ALT/SGPT 29 U/L (7.0-40); AST/SGOT 20 U/L (<34); BILIRUBIN,TOTAL 0.8 MG/DL (0.3-1.2); BLOOD UREA NITROGEN 8 MG/DL (9-23); CALCIUM LEVEL 7.4 MG/DL (8.5-10.1); CARBON DIOXIDE LEVEL 27 MMOL/L (20-31); CHLORIDE LEVEL 113 MMOL/L (98-107); GLOMERULAR FILTRATION RATE > 60.0 (>60); GLUCOSE, FASTING 106 MG/DL (60-100); MAGNESIUM LEVEL 1.5 MG/DL (1.8-2.4); POTASSIUM SERUM 3.5 MMOL/L (3.5-5.1); SODIUM LEVEL 144 MMOL/L (136-145); TOTAL PROTEIN 5.1 G/DL (5.7-8.2)
[2023-02-03] MEDS ORDERED: MAG SULF 1GM/100ML (MAG RUN) 1 GM in IV 1 EA IV ONE (08:00)
[2023-02-03] MEDS: PANTOPRAZOLE 40MG VIAL IV SCH ×2 (09:56→20:54)
[2023-02-03] MEDS: levETIRAcetam INJection 1,000 MG in D5W 100 ML IV SCH ×2 (09:56→20:57)
[2023-02-03] MEDS: SUCRALFATE SUSP 1GM/10ML UD GT SCH ×2 (09:56→20:46)
[2023-02-03] MEDS: LACOSAMIDE 10MG/ML 20ML VIAL (VIMPAT) IV SCH ×2 (09:56→21:39)
[2023-02-03] MEDS: BACLOFEN 10 MG TAB GT SCH ×3 (09:57→20:45)
[2023-02-03] MEDS: GABAPENTIN 100 MG CAP GT SCH ×2 (09:57→20:45)
[2023-02-03] MEDS: PYRIDOXINE 50 MG TAB GT SCH (09:58)
[2023-02-03] MEDS: COSOPT OCUMETER PLUS 10ML (DORZOLAMIDE/TIMOLOL) OS SCH ×2 (10:09→21:00)
[2023-02-04] VITALS (33 sets, daily range): BP systolic 137–169; BP diastolic 63–96; O2SAT 87–97
[2023-02-04] MEDS: PIPERACILLIN/TAZOBACTAM SOD 3.375 GM in D5W MINI-BAG PLUS 50 ML IV SCH ×4 (01:34→19:42)
[2023-02-04] MEDS: ACETAMINOPHEN 650MG SUPP PR PRN (03:42)
[2023-02-04 04:36] LABS: BASO % 0.1 % (0.0-1.0); EOS # 0.1 10^3/uL (0.0-0.5); EOS % 1.6 % (0.0-3.0); HEMATOCRIT 34.3 % (42.0-52.0); LYMPH # 1.4 10^3/uL (1.5-5.0); LYMPH % 15.8 % (24.0-44.0); MEAN CORPUSCULAR HEMOGLOBIN 27.5 pg (27.0-33.0); MEAN CORPUSCULAR HGB CONC 32.1 g/dl (32.0-36.5); MEAN CORPUSCULAR VOLUME 85.8 fl (80.0-96.0); MONO # 1.1 10^3/uL (0.0-0.8); MONO % 12.7 % (2.0-8.0); NEUTROPHILS % 69.6 % (36.0-66.0); PLATELET COUNT, AUTOMATED 122 10^3/uL (150-450); WHITE BLOOD COUNT 8.6 10^3/uL (4.0-10.0)
[2023-02-04 04:59] LABS: ALBUMIN 1.9 G/DL (3.2-5.2); ALKALINE PHOSPHATASE 86 U/L (46-116); ALT/SGPT 28 U/L (7.0-40); AST/SGOT 24 U/L (<34); BILIRUBIN,TOTAL 0.6 MG/DL (0.3-1.2); BLOOD UREA NITROGEN 5 MG/DL (9-23); CALCIUM LEVEL 7.3 MG/DL (8.5-10.1); CARBON DIOXIDE LEVEL 26 MMOL/L (20-31); CHLORIDE LEVEL 110 MMOL/L (98-107); CREATININE FOR GFR 0.48 MG/DL (0.70-1.30); GLOMERULAR FILTRATION RATE > 60.0 (>60); GLUCOSE, FASTING 141 MG/DL (60-100); MAGNESIUM LEVEL 1.5 MG/DL (1.8-2.4); POTASSIUM SERUM 3.2 MMOL/L (3.5-5.1); SODIUM LEVEL 142 MMOL/L (136-145); TOTAL PROTEIN 5.2 G/DL (5.7-8.2)
[2023-02-04] MEDS ORDERED: MAG SULF 1GM/100ML (MAG RUN) 1 GM in IV 1 EA IV ONE (07:55)
[2023-02-04 08:13] LABS: LIPASE 206 U/L (12-53)
[2023-02-04] MEDS: IPRATROPIUM 0.5MG/ALBUTEROL 2.5MG INH SOL UD 3ML (DUONEB) NEB SCH ×3 (08:53→19:37)
[2023-02-04] MEDS: levETIRAcetam INJection 1,000 MG in D5W 100 ML IV SCH ×2 (10:15→21:11)
[2023-02-04] MEDS: SUCRALFATE SUSP 1GM/10ML UD GT SCH ×2 (10:15→21:16)
[2023-02-04] MEDS: BACLOFEN 10 MG TAB GT SCH ×3 (10:16→21:16)
[2023-02-04] MEDS: LACOSAMIDE 10MG/ML 20ML VIAL (VIMPAT) IV SCH ×2 (10:16→21:07)
[2023-02-04] MEDS: PANTOPRAZOLE 40MG VIAL IV SCH ×2 (10:17→21:07)
[2023-02-04] MEDS: COSOPT OCUMETER PLUS 10ML (DORZOLAMIDE/TIMOLOL) OS SCH ×2 (10:17→21:16)
[2023-02-04] MEDS: GABAPENTIN 100 MG CAP GT SCH ×2 (10:17→21:16)
[2023-02-04] MEDS: PYRIDOXINE 50 MG TAB GT SCH (10:18)
[2023-02-04] MEDS: NS 1,000 ML IV SCH (15:13)
[2023-02-05] VITALS (30 sets, daily range): BP systolic 131–171; BP diastolic 88–105; O2SAT 84–98
[2023-02-05] MEDS: IPRATROPIUM 0.5MG/ALBUTEROL 2.5MG INH SOL UD 3ML (DUONEB) NEB SCH ×4 (01:15→21:37)
[2023-02-05] MEDS: PIPERACILLIN/TAZOBACTAM SOD 3.375 GM in D5W MINI-BAG PLUS 50 ML IV SCH ×4 (02:21→20:04)
[2023-02-05 06:17] LABS: BASO % 0.1 % (0.0-1.0); EOS # 0.4 10^3/uL (0.0-0.5); EOS % 5.5 % (0.0-3.0); HEMATOCRIT 33.5 % (42.0-52.0); LYMPH # 1.6 10^3/uL (1.5-5.0); LYMPH % 23.7 % (24.0-44.0); MEAN CORPUSCULAR HEMOGLOBIN 28.1 pg (27.0-33.0); MEAN CORPUSCULAR HGB CONC 32.8 g/dl (32.0-36.5); MEAN CORPUSCULAR VOLUME 85.5 fl (80.0-96.0); MONO # 0.8 10^3/uL (0.0-0.8); MONO % 12.1 % (2.0-8.0); NEUTROPHILS # 3.9 10^3/uL (1.5-8.5); NEUTROPHILS % 58.5 % (36.0-66.0); PLATELET COUNT, AUTOMATED 121 10^3/uL (150-450); RED BLOOD COUNT 3.92 10^6/uL (4.30-6.10); WHITE BLOOD COUNT 6.7 10^3/uL (4.0-10.0)
[2023-02-05 06:44] LABS: ALBUMIN 1.9 G/DL (3.2-5.2); ALKALINE PHOSPHATASE 91 U/L (46-116); ALT/SGPT 26 U/L (7.0-40); AST/SGOT 18 U/L (<34); BILIRUBIN,TOTAL 0.7 MG/DL (0.3-1.2); BLOOD UREA NITROGEN < 5 MG/DL (9-23); CALCIUM LEVEL 7.4 MG/DL (8.5-10.1); CARBON DIOXIDE LEVEL 25 MMOL/L (20-31); CHLORIDE LEVEL 109 MMOL/L (98-107); CREATININE FOR GFR 0.47 MG/DL (0.70-1.30); GLOMERULAR FILTRATION RATE > 60.0 (>60); GLUCOSE, FASTING 98 MG/DL (60-100); MAGNESIUM LEVEL 1.6 MG/DL (1.8-2.4); POTASSIUM SERUM 2.9 MMOL/L (3.5-5.1); SODIUM LEVEL 143 MMOL/L (136-145); TOTAL PROTEIN 5.4 G/DL (5.7-8.2)
[2023-02-05] MEDS ORDERED: KCL 10MEQ/100ML SWI (KRUN) 10 MEQ in IV 1 EA IV ONE (07:35)
[2023-02-05] MEDS: MAG SULF 1GM/100ML (MAG RUN) 1 GM in IV 1 EA IV SCH ×2 (08:26→09:24)
[2023-02-05] MEDS: PANTOPRAZOLE 40MG VIAL IV SCH ×2 (09:23→21:07)
[2023-02-05] MEDS: LACOSAMIDE 10MG/ML 20ML VIAL (VIMPAT) IV SCH ×2 (09:23→22:04)
[2023-02-05] MEDS: POTASSIUM CHL PWD 20MEQ PACKET PO SCH ×2 (09:24→09:31)
[2023-02-05] MEDS: GABAPENTIN 100 MG CAP GT SCH ×2 (09:24→21:07)
[2023-02-05] MEDS: SUCRALFATE SUSP 1GM/10ML UD GT SCH ×2 (09:24→21:06)
[2023-02-05] MEDS: BACLOFEN 10 MG TAB GT SCH ×3 (09:25→21:07)
[2023-02-05] MEDS: PYRIDOXINE 50 MG TAB GT SCH (09:27)
[2023-02-05] MEDS: COSOPT OCUMETER PLUS 10ML (DORZOLAMIDE/TIMOLOL) OS SCH ×2 (09:27→21:07)
[2023-02-05] MEDS: levETIRAcetam INJection 1,000 MG in D5W 100 ML IV SCH ×2 (09:27→21:06)
[2023-02-05] MEDS ORDERED: FUROSEMIDE 20MG/2ML VIAL IV ONE (12:10)
[2023-02-05 12:47] LABS: BLOOD UREA NITROGEN < 5 MG/DL (9-23); CALCIUM LEVEL 7.7 MG/DL (8.5-10.1); CARBON DIOXIDE LEVEL 24 MMOL/L (20-31); CHLORIDE LEVEL 108 MMOL/L (98-107); CREATININE FOR GFR 0.45 MG/DL (0.70-1.30); GLOMERULAR FILTRATION RATE > 60.0 (>60); GLUCOSE, FASTING 155 MG/DL (60-100); POTASSIUM SERUM 3.3 MMOL/L (3.5-5.1); SODIUM LEVEL 141 MMOL/L (136-145)
[2023-02-05] MEDS ORDERED: POTASSIUM CHL PWD 20MEQ PACKET PO ONE (14:00)
[2023-02-06] VITALS (27 sets, daily range): BP systolic 136–162; BP diastolic 86–101; O2SAT 90–95
[2023-02-06] MEDS: IPRATROPIUM 0.5MG/ALBUTEROL 2.5MG INH SOL UD 3ML (DUONEB) NEB SCH ×4 (01:27→20:18)
[2023-02-06] MEDS: PIPERACILLIN/TAZOBACTAM SOD 3.375 GM in D5W MINI-BAG PLUS 50 ML IV SCH ×4 (01:54→19:53)
[2023-02-06 05:56] LABS: BASO % 0.3 % (0.0-1.0); EOS # 0.7 10^3/uL (0.0-0.5); EOS % 9.6 % (0.0-3.0); HEMATOCRIT 36.3 % (42.0-52.0); HEMOGLOBIN 11.5 g/dl (13.5-17.5); LYMPH % 25.4 % (24.0-44.0); MEAN CORPUSCULAR HGB CONC 31.7 g/dl (32.0-36.5); MEAN CORPUSCULAR VOLUME 85.2 fl (80.0-96.0); MONO % 12.7 % (2.0-8.0); NEUTROPHILS % 51.5 % (36.0-66.0); PLATELET COUNT, AUTOMATED 144 10^3/uL (150-450); RED BLOOD COUNT 4.26 10^6/uL (4.30-6.10); WHITE BLOOD COUNT 7.7 10^3/uL (4.0-10.0)
[2023-02-06 06:07] LABS: LIPASE 465 U/L (12-53)
[2023-02-06 06:11] LABS: ALBUMIN 2.3 G/DL (3.2-5.2); ALKALINE PHOSPHATASE 105 U/L (46-116); ALT/SGPT 26 U/L (7.0-40); AST/SGOT 19 U/L (<34); BILIRUBIN,TOTAL 0.7 MG/DL (0.3-1.2); BLOOD UREA NITROGEN 5 MG/DL (9-23); CALCIUM LEVEL 8.3 MG/DL (8.5-10.1); CARBON DIOXIDE LEVEL 26 MMOL/L (20-31); CHLORIDE LEVEL 108 MMOL/L (98-107); CREATININE FOR GFR 0.55 MG/DL (0.70-1.30); GLOMERULAR FILTRATION RATE > 60.0 (>60); GLUCOSE, FASTING 101 MG/DL (60-100); MAGNESIUM LEVEL 1.7 MG/DL (1.8-2.4); POTASSIUM SERUM 3.4 MMOL/L (3.5-5.1); SODIUM LEVEL 140 MMOL/L (136-145); TOTAL PROTEIN 6.1 G/DL (5.7-8.2)
[2023-02-06] MEDS ORDERED: MAG SULF 1GM/100ML (MAG RUN) 1 GM in IV 1 EA IV ONE (08:00)
[2023-02-06] MEDS ORDERED: POTASSIUM CHL PWD 20MEQ PACKET PO ONE (09:00)
[2023-02-06] MEDS: BACLOFEN 10 MG TAB GT SCH ×3 (09:12→21:03)
[2023-02-06] MEDS: GABAPENTIN 100 MG CAP GT SCH ×2 (09:13→21:03)
[2023-02-06] MEDS: COSOPT OCUMETER PLUS 10ML (DORZOLAMIDE/TIMOLOL) OS SCH ×2 (09:13→21:03)
[2023-02-06] MEDS: levETIRAcetam INJection 1,000 MG in D5W 100 ML IV SCH ×2 (09:13→20:39)
[2023-02-06] MEDS: LACOSAMIDE 10MG/ML 20ML VIAL (VIMPAT) IV SCH ×2 (09:13→21:03)
[2023-02-06] MEDS: SUCRALFATE SUSP 1GM/10ML UD GT SCH ×2 (09:13→21:03)
[2023-02-06] MEDS: PANTOPRAZOLE 40MG VIAL IV SCH ×2 (09:13→20:39)
[2023-02-06] MEDS: PYRIDOXINE 50 MG TAB GT SCH (09:13)
[2023-02-07] VITALS (18 sets, daily range): BP systolic 137–160; BP diastolic 74–103; O2SAT 91–98
[2023-02-07] MEDS: PIPERACILLIN/TAZOBACTAM SOD 3.375 GM in D5W MINI-BAG PLUS 50 ML IV SCH ×2 (01:51→09:32)
[2023-02-07] MEDS: IPRATROPIUM 0.5MG/ALBUTEROL 2.5MG INH SOL UD 3ML (DUONEB) NEB SCH ×4 (02:36→20:26)
[2023-02-07 05:59] LABS: BASO % 0.5 % (0.0-1.0); EOS # 0.7 10^3/uL (0.0-0.5); EOS % 10.2 % (0.0-3.0); HEMOGLOBIN 11.2 g/dl (13.5-17.5); LYMPH # 1.6 10^3/uL (1.5-5.0); LYMPH % 24.5 % (24.0-44.0); MEAN CORPUSCULAR HEMOGLOBIN 27.9 pg (27.0-33.0); MEAN CORPUSCULAR HGB CONC 32.9 g/dl (32.0-36.5); MEAN CORPUSCULAR VOLUME 84.6 fl (80.0-96.0); MONO # 0.8 10^3/uL (0.0-0.8); MONO % 12.6 % (2.0-8.0); NEUTROPHILS # 3.3 10^3/uL (1.5-8.5); NEUTROPHILS % 51.9 % (36.0-66.0); PLATELET COUNT, AUTOMATED 167 10^3/uL (150-450); RED BLOOD COUNT 4.02 10^6/uL (4.30-6.10); WHITE BLOOD COUNT 6.4 10^3/uL (4.0-10.0)
[2023-02-07 06:23] LABS: ALBUMIN 2.1 G/DL (3.2-5.2); ALKALINE PHOSPHATASE 107 U/L (46-116); ALT/SGPT 25 U/L (7.0-40); AST/SGOT 17 U/L (<34); BILIRUBIN,TOTAL 0.5 MG/DL (0.3-1.2); BLOOD UREA NITROGEN 5 MG/DL (9-23); CALCIUM LEVEL 7.7 MG/DL (8.5-10.1); CARBON DIOXIDE LEVEL 27 MMOL/L (20-31); CHLORIDE LEVEL 108 MMOL/L (98-107); CREATININE FOR GFR 0.57 MG/DL (0.70-1.30); GLOMERULAR FILTRATION RATE > 60.0 (>60); GLUCOSE, FASTING 106 MG/DL (60-100); MAGNESIUM LEVEL 1.6 MG/DL (1.8-2.4); POTASSIUM SERUM 3.1 MMOL/L (3.5-5.1); SODIUM LEVEL 142 MMOL/L (136-145)
[2023-02-07] MEDS ORDERED: MAG SULF 1GM/100ML (MAG RUN) 1 GM in IV 1 EA IV ONE (08:00)
[2023-02-07] MEDS ORDERED: NS 1,000 ML IV SCH (08:35)
[2023-02-07] MEDS ORDERED: KCL 10MEQ/100ML SWI (KRUN) 10 MEQ in IV 1 EA IV ONE (09:00)
[2023-02-07] MEDS: PANTOPRAZOLE 40MG VIAL IV SCH ×2 (09:15→21:30)
[2023-02-07] MEDS: levETIRAcetam INJection 1,000 MG in D5W 100 ML IV SCH ×2 (09:16→21:48)
[2023-02-07] MEDS: SUCRALFATE SUSP 1GM/10ML UD GT SCH ×2 (09:17→21:31)
[2023-02-07] MEDS: GABAPENTIN 100 MG CAP GT SCH ×2 (09:17→21:30)
[2023-02-07] MEDS: PYRIDOXINE 50 MG TAB GT SCH (09:18)
[2023-02-07] MEDS: BACLOFEN 10 MG TAB GT SCH ×3 (09:18→21:30)
[2023-02-07] MEDS: COSOPT OCUMETER PLUS 10ML (DORZOLAMIDE/TIMOLOL) OS SCH ×2 (09:18→21:49)
[2023-02-07] MEDS: LACOSAMIDE 10MG/ML 20ML VIAL (VIMPAT) IV SCH ×2 (09:32→21:30)
[2023-02-07] MEDS ORDERED: AMINO AC/ELECTROLYTE/DEX/CALC 1,000 ML IV SCH (18:00)
[2023-02-07] MEDS ORDERED: FAT EMULSION IV 250 ML IV ONE (18:00)
[2023-02-07] MEDS: INSULIN LISPRO (NovoLOG) PER UNIT SC SCH (20:40)
[2023-02-08] VITALS (7 sets, daily range): BP systolic 137–167; BP diastolic 86–119
[2023-02-08] MEDS: INSULIN LISPRO (NovoLOG) PER UNIT SC SCH ×5 (00:13→23:50)
[2023-02-08] MEDS: IPRATROPIUM 0.5MG/ALBUTEROL 2.5MG INH SOL UD 3ML (DUONEB) NEB SCH ×4 (00:42→20:37)
[2023-02-08 07:54] LABS: BASO % 0.4 % (0.0-1.0); EOS # 0.7 10^3/uL (0.0-0.5); EOS % 9.6 % (0.0-3.0); HEMATOCRIT 37.7 % (42.0-52.0); HEMOGLOBIN 12.2 g/dl (13.5-17.5); LYMPH # 1.6 10^3/uL (1.5-5.0); LYMPH % 20.9 % (24.0-44.0); MEAN CORPUSCULAR HEMOGLOBIN 27.6 pg (27.0-33.0); MEAN CORPUSCULAR HGB CONC 32.4 g/dl (32.0-36.5); MEAN CORPUSCULAR VOLUME 85.3 fl (80.0-96.0); NEUTROPHILS # 4.2 10^3/uL (1.5-8.5); NEUTROPHILS % 55.6 % (36.0-66.0); PLATELET COUNT, AUTOMATED 239 10^3/uL (150-450); RED BLOOD COUNT 4.42 10^6/uL (4.30-6.10); WHITE BLOOD COUNT 7.5 10^3/uL (4.0-10.0)
[2023-02-08] MEDS: LACOSAMIDE 10MG/ML 20ML VIAL (VIMPAT) IV SCH ×2 (08:03→20:22)
[2023-02-08] MEDS: PANTOPRAZOLE 40MG VIAL IV SCH ×2 (08:03→20:53)
[2023-02-08 08:17] LABS: LIPASE 631 U/L (12-53)
[2023-02-08 08:22] LABS: ALBUMIN 2.2 G/DL (3.2-5.2); ALKALINE PHOSPHATASE 109 U/L (46-116); ALT/SGPT 25 U/L (7.0-40); AST/SGOT 19 U/L (<34); BILIRUBIN,TOTAL 0.2 MG/DL (0.3-1.2); BLOOD UREA NITROGEN < 5 MG/DL (9-23); CALCIUM LEVEL 8.1 MG/DL (8.5-10.1); CARBON DIOXIDE LEVEL 25 MMOL/L (20-31); CHLORIDE LEVEL 109 MMOL/L (98-107); CREATININE FOR GFR 0.53 MG/DL (0.70-1.30); GLOMERULAR FILTRATION RATE > 60.0 (>60); GLUCOSE, FASTING 105 MG/DL (60-100); MAGNESIUM LEVEL 1.7 MG/DL (1.8-2.4); POTASSIUM SERUM 3.2 MMOL/L (3.5-5.1); SODIUM LEVEL 144 MMOL/L (136-145); TOTAL PROTEIN 6.4 G/DL (5.7-8.2)
[2023-02-08] MEDS: PYRIDOXINE 50 MG TAB GT SCH (09:19)
[2023-02-08] MEDS: COSOPT OCUMETER PLUS 10ML (DORZOLAMIDE/TIMOLOL) OS SCH ×2 (09:19→20:53)
[2023-02-08] MEDS: SUCRALFATE SUSP 1GM/10ML UD GT SCH ×2 (09:19→20:53)
[2023-02-08] MEDS: BACLOFEN 10 MG TAB GT SCH ×3 (09:19→20:53)
[2023-02-08] MEDS: levETIRAcetam INJection 1,000 MG in D5W 100 ML IV SCH ×2 (09:19→21:19)
[2023-02-08] MEDS: GABAPENTIN 100 MG CAP GT SCH ×2 (09:19→20:53)
[2023-02-08] MEDS ORDERED: MAG SULF 1GM/100ML (MAG RUN) 1 GM in IV 1 EA IV ONE (10:00)
[2023-02-08] MEDS ORDERED: KCL 10MEQ/100ML SWI (KRUN) 10 MEQ in IV 1 EA IV ONE (11:00)
[2023-02-08] MEDS ORDERED: FAT EMULSION IV 250 ML IV ONE (18:00)
[2023-02-08] MEDS ORDERED: MULTIVITAMIN -ADULT INJECTION 10 ML, ZINC/COPPER/MANGANESE/SELENIUM 1 ML in AMINO AC/EL... IV SCH (18:00)
[2023-02-08] MEDS: ACETAMINOPHEN 650MG SUPP PR PRN (22:12)
[2023-02-09] VITALS (7 sets, daily range): BP systolic 132–173; BP diastolic 90–103
[2023-02-09] MEDS: IPRATROPIUM 0.5MG/ALBUTEROL 2.5MG INH SOL UD 3ML (DUONEB) NEB SCH ×4 (00:51→19:32)
[2023-02-09 04:44] LABS: BASO # 0.1 10^3/uL (0.0-0.2); BASO % 0.7 % (0.0-1.0); EOS # 0.6 10^3/uL (0.0-0.5); EOS % 7.8 % (0.0-3.0); HEMATOCRIT 35.8 % (42.0-52.0); HEMOGLOBIN 11.6 g/dl (13.5-17.5); LYMPH # 2.1 10^3/uL (1.5-5.0); LYMPH % 28.9 % (24.0-44.0); MEAN CORPUSCULAR HEMOGLOBIN 27.8 pg (27.0-33.0); MEAN CORPUSCULAR HGB CONC 32.4 g/dl (32.0-36.5); MEAN CORPUSCULAR VOLUME 85.9 fl (80.0-96.0); MONO % 14.6 % (2.0-8.0); NEUTROPHILS # 3.4 10^3/uL (1.5-8.5); NEUTROPHILS % 47.2 % (36.0-66.0); PLATELET COUNT, AUTOMATED 301 10^3/uL (150-450); RED BLOOD COUNT 4.17 10^6/uL (4.30-6.10); WHITE BLOOD COUNT 7.1 10^3/uL (4.0-10.0)
[2023-02-09 05:13] LABS: ALBUMIN 2.4 G/DL (3.2-5.2); ALKALINE PHOSPHATASE 99 U/L (46-116); ALT/SGPT 23 U/L (7.0-40); AST/SGOT 21 U/L (<34); BILIRUBIN,TOTAL 0.2 MG/DL (0.3-1.2); BLOOD UREA NITROGEN < 5 MG/DL (9-23); CALCIUM LEVEL 8.5 MG/DL (8.5-10.1); CARBON DIOXIDE LEVEL 24 MMOL/L (20-31); CHLORIDE LEVEL 109 MMOL/L (98-107); CREATININE FOR GFR 0.53 MG/DL (0.70-1.30); GLOMERULAR FILTRATION RATE > 60.0 (>60); GLUCOSE, FASTING 153 MG/DL (60-100); MAGNESIUM LEVEL 1.7 MG/DL (1.8-2.4); POTASSIUM SERUM 3.2 MMOL/L (3.5-5.1); SODIUM LEVEL 142 MMOL/L (136-145); TOTAL PROTEIN 6.6 G/DL (5.7-8.2)
[2023-02-09] MEDS: INSULIN LISPRO (NovoLOG) PER UNIT SC SCH ×4 (05:37→23:04)
[2023-02-09] MEDS ORDERED: MAG SULF 1GM/100ML (MAG RUN) 1 GM in IV 1 EA IV ONE (06:00)
[2023-02-09 07:50] LABS: LIPASE 634 U/L (12-53)
[2023-02-09] MEDS ORDERED: POTASSIUM CHLORIDE 10% LIQ 20MEQ/15ML UDC PO ONE (09:00)
[2023-02-09] MEDS: GABAPENTIN 100 MG CAP GT SCH ×2 (09:43→20:54)
[2023-02-09] MEDS: PYRIDOXINE 50 MG TAB GT SCH (09:43)
[2023-02-09] MEDS: BACLOFEN 10 MG TAB GT SCH ×3 (09:43→20:54)
[2023-02-09] MEDS: SUCRALFATE SUSP 1GM/10ML UD GT SCH ×2 (09:43→20:54)
[2023-02-09] MEDS: LACOSAMIDE 10MG/ML 20ML VIAL (VIMPAT) IV SCH ×2 (09:44→20:55)
[2023-02-09] MEDS: PANTOPRAZOLE 40MG VIAL IV SCH ×2 (09:44→20:54)
[2023-02-09] MEDS: COSOPT OCUMETER PLUS 10ML (DORZOLAMIDE/TIMOLOL) OS SCH ×2 (09:44→20:55)
[2023-02-09] MEDS: levETIRAcetam INJection 1,000 MG in D5W 100 ML IV SCH ×2 (11:21→20:54)
[2023-02-09] MEDS ORDERED: AMINO AC/ELECTROLYTE/DEX/CALC 1,000 ML IV SCH (18:00)
[2023-02-09] MEDS ORDERED: FAT EMULSION IV 250 ML IV ONE (18:00)
[2023-02-09] MEDS: ACETAMINOPHEN 650MG SUPP PR PRN (21:26)
[2023-02-09] MEDS ORDERED: ALTEPLASE 2MG/2ML VIAL XX ONE (21:30)
[2023-02-10] MEDS: IPRATROPIUM 0.5MG/ALBUTEROL 2.5MG INH SOL UD 3ML (DUONEB) NEB SCH ×4 (00:40→20:13)
[2023-02-10 04:00] VITALS: BP 132/80
[2023-02-10] MEDS: INSULIN LISPRO (NovoLOG) PER UNIT SC SCH ×3 (05:57→18:19)
[2023-02-10] MEDS: SODIUM CHLORIDE 0.9% INJ 10 ML SYR IV SCH ×2 (05:58→17:35)
[2023-02-10] MEDS ORDERED: MAG SULF 1GM/100ML (MAG RUN) 1 GM in IV 1 EA IV ONE (07:30)
[2023-02-10] MEDS ORDERED: KCL 10MEQ/100ML SWI (KRUN) 10 MEQ in IV 1 EA IV ONE (08:00)
[2023-02-10 08:11] VITALS: BP 138/86
[2023-02-10] MEDS: PYRIDOXINE 50 MG TAB GT SCH (08:40)
[2023-02-10] MEDS: COSOPT OCUMETER PLUS 10ML (DORZOLAMIDE/TIMOLOL) OS SCH ×2 (08:41→20:50)
[2023-02-10] MEDS: GABAPENTIN 100 MG CAP GT SCH ×2 (08:41→20:50)
[2023-02-10] MEDS: SUCRALFATE SUSP 1GM/10ML UD GT SCH ×2 (08:41→20:49)
[2023-02-10] MEDS: PANTOPRAZOLE 40MG VIAL IV SCH ×2 (08:41→20:49)
[2023-02-10] MEDS: BACLOFEN 10 MG TAB GT SCH ×3 (08:41→20:49)
[2023-02-10] MEDS: levETIRAcetam INJection 1,000 MG in D5W 100 ML IV SCH ×2 (10:00→20:49)
[2023-02-10 11:23] VITALS: BP 130/62
[2023-02-10] MEDS: LACOSAMIDE 10MG/ML 20ML VIAL (VIMPAT) IV SCH ×2 (11:33→20:02)
[2023-02-10 15:11] VITALS: BP 125/99
[2023-02-10] MEDS ORDERED: AMINO AC/ELECTROLYTE/DEX/CALC 1,000 ML IV SCH (18:00)
[2023-02-10] MEDS ORDERED: FAT EMULSION IV 250 ML IV ONE (18:00)
[2023-02-10] MEDS: ACETAMINOPHEN 650MG SUPP PR PRN (18:18)
[2023-02-10] MEDS: MORPHINE 2 MG/ML 1ML VIAL IV PRN (22:48)
[2023-02-11] MEDS: ACETAMINOPHEN 650MG SUPP PR PRN (00:36)
[2023-02-11] MEDS: INSULIN LISPRO (NovoLOG) PER UNIT SC SCH ×4 (00:36→18:00)
[2023-02-11] MEDS: IPRATROPIUM 0.5MG/ALBUTEROL 2.5MG INH SOL UD 3ML (DUONEB) NEB SCH ×4 (01:32→18:53)
[2023-02-11 04:00] VITALS: BP 147/79
[2023-02-11] MEDS: SODIUM CHLORIDE 0.9% INJ 10 ML SYR IV SCH ×2 (05:45→18:00)
[2023-02-11] MEDS: MORPHINE 2 MG/ML 1ML VIAL IV PRN ×4 (05:45→22:09)
[2023-02-11 06:47] LABS: BASO % 0.4 % (0.0-1.0); EOS # 0.5 10^3/uL (0.0-0.5); EOS % 5.3 % (0.0-3.0); HEMATOCRIT 37.5 % (42.0-52.0); HEMOGLOBIN 12.1 g/dl (13.5-17.5); LYMPH # 1.5 10^3/uL (1.5-5.0); MEAN CORPUSCULAR HEMOGLOBIN 27.6 pg (27.0-33.0); MEAN CORPUSCULAR HGB CONC 32.3 g/dl (32.0-36.5); MEAN CORPUSCULAR VOLUME 85.6 fl (80.0-96.0); MONO # 0.9 10^3/uL (0.0-0.8); MONO % 9.1 % (2.0-8.0); NEUTROPHILS # 6.5 10^3/uL (1.5-8.5); NEUTROPHILS % 68.5 % (36.0-66.0); PLATELET COUNT, AUTOMATED 441 10^3/uL (150-450); RED BLOOD COUNT 4.38 10^6/uL (4.30-6.10); WHITE BLOOD COUNT 9.5 10^3/uL (4.0-10.0)
[2023-02-11 07:28] LABS: ALBUMIN 2.5 G/DL (3.2-5.2); ALKALINE PHOSPHATASE 86 U/L (46-116); ALT/SGPT 21 U/L (7.0-40); AST/SGOT 23 U/L (<34); BILIRUBIN,TOTAL 0.2 MG/DL (0.3-1.2); BLOOD UREA NITROGEN 9 MG/DL (9-23); CALCIUM LEVEL 8.6 MG/DL (8.5-10.1); CARBON DIOXIDE LEVEL 25 MMOL/L (20-31); CHLORIDE LEVEL 107 MMOL/L (98-107); GLOMERULAR FILTRATION RATE > 60.0 (>60); GLUCOSE, FASTING 170 MG/DL (60-100); LIPASE 831 U/L (12-53); MAGNESIUM LEVEL 1.7 MG/DL (1.8-2.4); POTASSIUM SERUM 3.3 MMOL/L (3.5-5.1); SODIUM LEVEL 138 MMOL/L (136-145); TOTAL PROTEIN 6.7 G/DL (5.7-8.2)
[2023-02-11 07:55] VITALS: BP 135/71
[2023-02-11] MEDS: LACOSAMIDE 10MG/ML 20ML VIAL (VIMPAT) IV SCH ×2 (08:54→22:07)
[2023-02-11] MEDS: levETIRAcetam INJection 1,000 MG in D5W 100 ML IV SCH ×2 (08:54→22:07)
[2023-02-11] MEDS: BACLOFEN 10 MG TAB GT SCH ×3 (08:54→22:07)
[2023-02-11] MEDS: GABAPENTIN 100 MG CAP GT SCH ×2 (08:54→22:07)
[2023-02-11] MEDS: SUCRALFATE SUSP 1GM/10ML UD GT SCH ×2 (08:54→22:07)
[2023-02-11] MEDS: PANTOPRAZOLE 40MG VIAL IV SCH ×2 (08:55→22:07)
[2023-02-11] MEDS: COSOPT OCUMETER PLUS 10ML (DORZOLAMIDE/TIMOLOL) OS SCH ×2 (08:55→22:08)
[2023-02-11] MEDS ORDERED: MAG SULF 1GM/100ML (MAG RUN) 1 GM in IV 1 EA IV ONE (09:00)
[2023-02-11] MEDS ORDERED: KCL 10MEQ/100ML SWI (KRUN) 10 MEQ in IV 1 EA IV ONE (09:00)
[2023-02-11] MEDS: PYRIDOXINE 50 MG TAB GT SCH (09:09)
[2023-02-11 11:25] VITALS: BP 102/57
[2023-02-11 16:00] VITALS: BP 129/78
[2023-02-11] MEDS ORDERED: MULTIVITAMIN -ADULT INJECTION 10 ML, ZINC/COPPER/MANGANESE/SELENIUM 1 ML in AMINO AC/EL... IV SCH (18:00)
[2023-02-11] MEDS ORDERED: FAT EMULSION IV 250 ML IV ONE (18:00)
[2023-02-11 20:31] VITALS: BP 122/77
[2023-02-12] MEDS: INSULIN LISPRO (NovoLOG) PER UNIT SC SCH ×4 (01:00→18:03)
[2023-02-12] MEDS: IPRATROPIUM 0.5MG/ALBUTEROL 2.5MG INH SOL UD 3ML (DUONEB) NEB SCH ×4 (01:53→19:51)
[2023-02-12] MEDS: SODIUM CHLORIDE 0.9% INJ 10 ML SYR IV SCH ×2 (05:38→17:06)
[2023-02-12 06:16] LABS: BASO # 0.1 10^3/uL (0.0-0.2); BASO % 0.8 % (0.0-1.0); EOS # 0.6 10^3/uL (0.0-0.5); EOS % 9.6 % (0.0-3.0); HEMATOCRIT 36.4 % (42.0-52.0); HEMOGLOBIN 11.3 g/dl (13.5-17.5); LYMPH # 2.1 10^3/uL (1.5-5.0); MEAN CORPUSCULAR HEMOGLOBIN 27.4 pg (27.0-33.0); MEAN CORPUSCULAR VOLUME 88.3 fl (80.0-96.0); MONO # 0.7 10^3/uL (0.0-0.8); MONO % 11.3 % (2.0-8.0); NEUTROPHILS # 2.6 10^3/uL (1.5-8.5); NEUTROPHILS % 42.5 % (36.0-66.0); PLATELET COUNT, AUTOMATED 417 10^3/uL (150-450); RED BLOOD COUNT 4.12 10^6/uL (4.30-6.10)
[2023-02-12 06:17] VITALS: BP 138/82
[2023-02-12 06:56] LABS: ALBUMIN 2.4 G/DL (3.2-5.2); ALKALINE PHOSPHATASE 79 U/L (46-116); ALT/SGPT 21 U/L (7.0-40); AST/SGOT 23 U/L (<34); BILIRUBIN,TOTAL 0.2 MG/DL (0.3-1.2); BLOOD UREA NITROGEN 7 MG/DL (9-23); CALCIUM LEVEL 8.5 MG/DL (8.5-10.1); CARBON DIOXIDE LEVEL 26 MMOL/L (20-31); CHLORIDE LEVEL 106 MMOL/L (98-107); CREATININE FOR GFR 0.52 MG/DL (0.70-1.30); GLOMERULAR FILTRATION RATE > 60.0 (>60); GLUCOSE, FASTING 127 MG/DL (60-100); MAGNESIUM LEVEL 1.5 MG/DL (1.8-2.4); POTASSIUM SERUM 3.7 MMOL/L (3.5-5.1); SODIUM LEVEL 142 MMOL/L (136-145); TOTAL PROTEIN 6.3 G/DL (5.7-8.2)
[2023-02-12] MEDS ORDERED: ENOXAPARIN 40MG/0.4ML SYRINGE (J1650 PER 10MG) SC SCH (09:00)
[2023-02-12] MEDS: levETIRAcetam INJection 1,000 MG in D5W 100 ML IV SCH (09:39)
[2023-02-12] MEDS: LACOSAMIDE 10MG/ML 20ML VIAL (VIMPAT) IV SCH ×2 (09:40→22:10)
[2023-02-12] MEDS: PANTOPRAZOLE 40MG VIAL IV SCH ×2 (09:40→22:10)
[2023-02-12] MEDS: GABAPENTIN 100 MG CAP GT SCH ×2 (09:40→22:11)
[2023-02-12] MEDS: PYRIDOXINE 50 MG TAB GT SCH (09:40)
[2023-02-12] MEDS: BACLOFEN 10 MG TAB GT SCH ×3 (09:40→22:11)
[2023-02-12] MEDS: SUCRALFATE SUSP 1GM/10ML UD GT SCH ×2 (09:40→22:10)
[2023-02-12] MEDS: COSOPT OCUMETER PLUS 10ML (DORZOLAMIDE/TIMOLOL) OS SCH ×2 (09:41→22:11)
[2023-02-12] MEDS ORDERED: MAG SULF 1GM/100ML (MAG RUN) 1 GM in IV 1 EA IV ONE (10:00)
[2023-02-12 11:09] LABS: PHOSPHORUS LEVEL 4.3 MG/DL (2.5-4.9)
[2023-02-12] MEDS: MAG SULF 1GM/100ML (MAG RUN) 1 GM in IV 1 EA IV SCH ×3 (11:58→14:07)
[2023-02-12 14:00] VITALS: BP 141/92
[2023-02-12] MEDS: ACETAMINOPHEN 650MG SUPP PR PRN (14:07)
[2023-02-12] MEDS ORDERED: AMINO AC/ELECTROLYTE/DEX/CALC 1,000 ML IV SCH (18:00)
[2023-02-12] MEDS ORDERED: FAT EMULSION IV 250 ML IV ONE (18:00)
[2023-02-12 21:07] VITALS: BP 135/89
[2023-02-12] MEDS: levETIRAcetam ORAL SOLUTION 500MG/5ML UDC GT SCH (22:10)
[2023-02-13] MEDS: INSULIN LISPRO (NovoLOG) PER UNIT SC SCH ×4 (00:54→17:34)
[2023-02-13] MEDS: IPRATROPIUM 0.5MG/ALBUTEROL 2.5MG INH SOL UD 3ML (DUONEB) NEB SCH ×2 (01:57→07:14)
[2023-02-13 05:25] VITALS: BP 129/71
[2023-02-13 05:46] LABS: BASO % 0.6 % (0.0-1.0); EOS # 0.4 10^3/uL (0.0-0.5); EOS % 5.5 % (0.0-3.0); HEMATOCRIT 36.1 % (42.0-52.0); HEMOGLOBIN 11.5 g/dl (13.5-17.5); LYMPH # 1.5 10^3/uL (1.5-5.0); LYMPH % 21.1 % (24.0-44.0); MEAN CORPUSCULAR HEMOGLOBIN 27.4 pg (27.0-33.0); MEAN CORPUSCULAR HGB CONC 31.9 g/dl (32.0-36.5); MONO # 0.6 10^3/uL (0.0-0.8); MONO % 9.2 % (2.0-8.0); NEUTROPHILS # 4.3 10^3/uL (1.5-8.5); NEUTROPHILS % 63.2 % (36.0-66.0); PLATELET COUNT, AUTOMATED 515 10^3/uL (150-450); WHITE BLOOD COUNT 6.9 10^3/uL (4.0-10.0)
[2023-02-13] MEDS: SODIUM CHLORIDE 0.9% INJ 10 ML SYR IV SCH ×2 (06:00→17:34)
[2023-02-13 06:12] LABS: ALBUMIN 2.4 G/DL (3.2-5.2); ALKALINE PHOSPHATASE 77 U/L (46-116); ALT/SGPT 20 U/L (7.0-40); AST/SGOT 24 U/L (<34); BILIRUBIN,TOTAL 0.4 MG/DL (0.3-1.2); BLOOD UREA NITROGEN 6 MG/DL (9-23); CALCIUM LEVEL 8.2 MG/DL (8.5-10.1); CARBON DIOXIDE LEVEL 27 MMOL/L (20-31); CHLORIDE LEVEL 108 MMOL/L (98-107); CREATININE FOR GFR 0.51 MG/DL (0.70-1.30); GLOMERULAR FILTRATION RATE > 60.0 (>60); GLUCOSE, FASTING 150 MG/DL (60-100); MAGNESIUM LEVEL 1.8 MG/DL (1.8-2.4); POTASSIUM SERUM 3.6 MMOL/L (3.5-5.1); SODIUM LEVEL 143 MMOL/L (136-145); TOTAL PROTEIN 6.5 G/DL (5.7-8.2)
[2023-02-13] MEDS ORDERED: MAGNESIUM OXIDE 400MG TAB (MAG-OX) PO SCH (09:00)
[2023-02-13] MEDS: LACOSAMIDE 10MG/ML 20ML VIAL (VIMPAT) IV SCH ×2 (09:07→21:51)
[2023-02-13] MEDS: PANTOPRAZOLE 40MG VIAL IV SCH ×2 (09:07→21:12)
[2023-02-13] MEDS: levETIRAcetam ORAL SOLUTION 500MG/5ML UDC GT SCH ×2 (09:08→21:17)
[2023-02-13] MEDS: SUCRALFATE SUSP 1GM/10ML UD GT SCH ×2 (09:08→21:13)
[2023-02-13] MEDS: GABAPENTIN 100 MG CAP GT SCH ×2 (09:08→21:14)
[2023-02-13] MEDS: BACLOFEN 10 MG TAB GT SCH ×3 (09:08→21:12)
[2023-02-13] MEDS: ENOXAPARIN 30MG/0.3ML SYRINGE (J1650 PER 10MG) SC SCH (09:09)
[2023-02-13] MEDS: PYRIDOXINE 50 MG TAB GT SCH (09:09)
[2023-02-13] MEDS: COSOPT OCUMETER PLUS 10ML (DORZOLAMIDE/TIMOLOL) OS SCH ×2 (09:09→21:14)
[2023-02-13] MEDS ORDERED: E-Z-PAQUE 96% w/w SUSP 176GM BTL As Ordered ONE (09:28)
[2023-02-13] MEDS ORDERED: POTASSIUM CHLORIDE 10MEQ SR TABLET PO ONE (10:00)
[2023-02-13] MEDS ORDERED: LEVALBUTEROL HFA 45MCG/ACT 15GM INHALER INH PRN (10:00)
[2023-02-13] MEDS ORDERED: POTASSIUM CHLORIDE 10% LIQ 20MEQ/15ML UDC GT ONE (11:10)
[2023-02-13] MEDS: MAGNESIUM OXIDE 400MG TAB (MAG-OX) GT SCH ×2 (12:23→21:13)
[2023-02-13] MEDS ORDERED: SODIUM CHLORIDE 0.9% INJ 10 ML SYR IV PRN (12:25)
[2023-02-13] MEDS: SODIUM CHLORIDE 0.9% INJ 10 ML SYR IV PRN (12:47)
[2023-02-13 14:46] VITALS: BP 153/93
[2023-02-13] MEDS ORDERED: FAT EMULSION IV 250 ML IV ONE (18:00)
[2023-02-13] MEDS ORDERED: MULTIVITAMIN -ADULT INJECTION 10 ML, ZINC/COPPER/MANGANESE/SELENIUM 1 ML in AMINO AC/EL... IV SCH (18:00)
[2023-02-13 20:44] VITALS: BP 174/98
[2023-02-13] MEDS ORDERED: OMEPRAZOLE/SODIUM BICARB 20-840MG 10ML ORAL SYRINGE GT SCH (21:00)
[2023-02-14] MEDS: INSULIN LISPRO (NovoLOG) PER UNIT SC SCH ×4 (00:08→17:34)
[2023-02-14 05:40] VITALS: BP 125/68
[2023-02-14] MEDS: SODIUM CHLORIDE 0.9% INJ 10 ML SYR IV SCH ×2 (05:41→17:32)
[2023-02-14 06:20] LABS: BASO % 0.4 % (0.0-1.0); EOS # 0.4 10^3/uL (0.0-0.5); EOS % 5.2 % (0.0-3.0); HEMATOCRIT 35.1 % (42.0-52.0); HEMOGLOBIN 11.2 g/dl (13.5-17.5); LYMPH # 1.5 10^3/uL (1.5-5.0); LYMPH % 21.1 % (24.0-44.0); MEAN CORPUSCULAR HEMOGLOBIN 27.3 pg (27.0-33.0); MEAN CORPUSCULAR HGB CONC 31.9 g/dl (32.0-36.5); MEAN CORPUSCULAR VOLUME 85.4 fl (80.0-96.0); MONO # 0.6 10^3/uL (0.0-0.8); MONO % 8.4 % (2.0-8.0); NEUTROPHILS # 4.6 10^3/uL (1.5-8.5); NEUTROPHILS % 64.6 % (36.0-66.0); PLATELET COUNT, AUTOMATED 519 10^3/uL (150-450); RED BLOOD COUNT 4.11 10^6/uL (4.30-6.10); WHITE BLOOD COUNT 7.2 10^3/uL (4.0-10.0)
[2023-02-14 06:49] LABS: ALBUMIN 2.6 G/DL (3.2-5.2); ALKALINE PHOSPHATASE 75 U/L (46-116); ALT/SGPT 29 U/L (7.0-40); AST/SGOT 32 U/L (<34); BILIRUBIN,TOTAL 0.6 MG/DL (0.3-1.2); BLOOD UREA NITROGEN 7 MG/DL (9-23); CALCIUM LEVEL 8.8 MG/DL (8.5-10.1); CARBON DIOXIDE LEVEL 26 MMOL/L (20-31); CHLORIDE LEVEL 106 MMOL/L (98-107); CREATININE FOR GFR 0.51 MG/DL (0.70-1.30); GLOMERULAR FILTRATION RATE > 60.0 (>60); GLUCOSE, FASTING 164 MG/DL (60-100); MAGNESIUM LEVEL 1.5 MG/DL (1.8-2.4); POTASSIUM SERUM 3.8 MMOL/L (3.5-5.1); SODIUM LEVEL 141 MMOL/L (136-145); TOTAL PROTEIN 6.7 G/DL (5.7-8.2)
[2023-02-14] MEDS: LACOSAMIDE 10MG/ML 20ML VIAL (VIMPAT) IV SCH ×2 (09:24→22:14)
[2023-02-14] MEDS: SUCRALFATE SUSP 1GM/10ML UD GT SCH ×2 (09:25→20:26)
[2023-02-14] MEDS: PANTOPRAZOLE 40MG VIAL IV SCH ×2 (09:25→22:14)
[2023-02-14] MEDS: ENOXAPARIN 30MG/0.3ML SYRINGE (J1650 PER 10MG) SC SCH (09:25)
[2023-02-14] MEDS: PYRIDOXINE 50 MG TAB GT SCH (09:26)
[2023-02-14] MEDS: GABAPENTIN 100 MG CAP GT SCH ×2 (09:26→22:47)
[2023-02-14] MEDS: levETIRAcetam ORAL SOLUTION 500MG/5ML UDC GT SCH ×2 (09:26→22:13)
[2023-02-14] MEDS: BACLOFEN 10 MG TAB GT SCH ×3 (09:30→22:14)
[2023-02-14] MEDS: MAGNESIUM OXIDE 400MG TAB (MAG-OX) GT SCH ×2 (09:30→22:14)
[2023-02-14] MEDS: SODIUM CHLORIDE 0.9% INJ 10 ML SYR IV PRN (09:31)
[2023-02-14] MEDS: COSOPT OCUMETER PLUS 10ML (DORZOLAMIDE/TIMOLOL) OS SCH ×2 (09:31→22:15)
[2023-02-14] MEDS ORDERED: MAG SULF 1GM/100ML (MAG RUN) 1 GM in IV 1 EA IV ONE (12:00)
[2023-02-14 14:00] VITALS: BP 135/93
[2023-02-14] MEDS ORDERED: METOCLOPRAMIDE INJ 10MG/2ML VIAL IV PRN (18:00)
[2023-02-14] MEDS ORDERED: FAT EMULSION IV 250 ML IV ONE (18:00)
[2023-02-14] MEDS ORDERED: AMINO AC/ELECTROLYTE/DEX/CALC 1,000 ML IV SCH (18:00)
[2023-02-14] MEDS ORDERED: SIMETHICONE 80MG CHEW TAB GT PRN (18:00)
[2023-02-14 20:00] VITALS: BP 140/89
[2023-02-15] MEDS: INSULIN LISPRO (NovoLOG) PER UNIT SC SCH ×5 (00:28→23:57)
[2023-02-15] MEDS: SODIUM CHLORIDE 0.9% INJ 10 ML SYR IV SCH ×2 (05:46→18:09)
[2023-02-15 05:58] LABS: BASO # 0.1 10^3/uL (0.0-0.2); EOS # 0.3 10^3/uL (0.0-0.5); EOS % 5.8 % (0.0-3.0); HEMATOCRIT 33.5 % (42.0-52.0); HEMOGLOBIN 10.6 g/dl (13.5-17.5); LYMPH # 1.6 10^3/uL (1.5-5.0); LYMPH % 32.1 % (24.0-44.0); MEAN CORPUSCULAR HEMOGLOBIN 27.2 pg (27.0-33.0); MEAN CORPUSCULAR HGB CONC 31.6 g/dl (32.0-36.5); MEAN CORPUSCULAR VOLUME 86.1 fl (80.0-96.0); MONO # 0.6 10^3/uL (0.0-0.8); MONO % 11.8 % (2.0-8.0); NEUTROPHILS # 2.5 10^3/uL (1.5-8.5); NEUTROPHILS % 48.9 % (36.0-66.0); PLATELET COUNT, AUTOMATED 475 10^3/uL (150-450); RED BLOOD COUNT 3.89 10^6/uL (4.30-6.10)
[2023-02-15 06:00] VITALS: BP 141/84
[2023-02-15 06:34] LABS: ALBUMIN 2.5 G/DL (3.2-5.2); ALKALINE PHOSPHATASE 70 U/L (46-116); ALT/SGPT 57 U/L (7.0-40); AST/SGOT 76 U/L (<34); BILIRUBIN,TOTAL 1.2 MG/DL (0.3-1.2); BLOOD UREA NITROGEN 7 MG/DL (9-23); CALCIUM LEVEL 8.3 MG/DL (8.5-10.1); CARBON DIOXIDE LEVEL 25 MMOL/L (20-31); CHLORIDE LEVEL 107 MMOL/L (98-107); CREATININE FOR GFR 0.51 MG/DL (0.70-1.30); GLOMERULAR FILTRATION RATE > 60.0 (>60); GLUCOSE, FASTING 156 MG/DL (60-100); MAGNESIUM LEVEL 1.6 MG/DL (1.8-2.4); PHOSPHORUS LEVEL 3.6 MG/DL (2.5-4.9); POTASSIUM SERUM 3.7 MMOL/L (3.5-5.1); SODIUM LEVEL 141 MMOL/L (136-145); TOTAL PROTEIN 6.3 G/DL (5.7-8.2)
[2023-02-15] MEDS: LACOSAMIDE 10MG/ML 20ML VIAL (VIMPAT) IV SCH ×2 (08:38→21:12)
[2023-02-15] MEDS: SUCRALFATE SUSP 1GM/10ML UD GT SCH ×2 (08:39→21:11)
[2023-02-15] MEDS: levETIRAcetam ORAL SOLUTION 500MG/5ML UDC GT SCH ×2 (08:39→21:11)
[2023-02-15] MEDS: ENOXAPARIN 30MG/0.3ML SYRINGE (J1650 PER 10MG) SC SCH ×2 (08:39→09:00)
[2023-02-15] MEDS: PANTOPRAZOLE 40MG VIAL IV SCH ×2 (08:39→21:11)
[2023-02-15] MEDS: GABAPENTIN 100 MG CAP GT SCH ×2 (08:40→21:12)
[2023-02-15] MEDS: PYRIDOXINE 50 MG TAB GT SCH (08:40)
[2023-02-15] MEDS: MAGNESIUM OXIDE 400MG TAB (MAG-OX) GT SCH ×2 (08:40→21:12)
[2023-02-15] MEDS: BACLOFEN 10 MG TAB GT SCH ×3 (08:40→21:12)
[2023-02-15] MEDS: COSOPT OCUMETER PLUS 10ML (DORZOLAMIDE/TIMOLOL) OS SCH ×2 (08:41→21:13)
[2023-02-15] MEDS ORDERED: MAG SULF 1GM/100ML (MAG RUN) 1 GM in IV 1 EA IV SCH (09:00)
[2023-02-15] MEDS: MAG SULF 1GM/100ML (MAG RUN) 1 GM in IV 1 EA IV SCH ×2 (10:25→11:33)
[2023-02-15 14:00] VITALS: BP 137/88
[2023-02-15] MEDS ORDERED: FAT EMULSION IV 250 ML IV ONE (18:00)
[2023-02-15] MEDS ORDERED: MULTIVITAMIN -ADULT INJECTION 10 ML, ZINC/COPPER/MANGANESE/SELENIUM 1 ML in AMINO AC/EL... IV SCH (18:00)
[2023-02-15 20:46] VITALS: BP 133/82
[2023-02-16] MEDS: SODIUM CHLORIDE 0.9% INJ 10 ML SYR IV SCH ×2 (05:44→16:29)
[2023-02-16 05:45] VITALS: BP 118/62
[2023-02-16 06:04] LABS: BASO # 0.1 10^3/uL (0.0-0.2); EOS # 0.3 10^3/uL (0.0-0.5); EOS % 5.7 % (0.0-3.0); HEMATOCRIT 33.2 % (42.0-52.0); HEMOGLOBIN 10.3 g/dl (13.5-17.5); LYMPH # 1.5 10^3/uL (1.5-5.0); MEAN CORPUSCULAR VOLUME 86.9 fl (80.0-96.0); MONO # 0.6 10^3/uL (0.0-0.8); MONO % 11.1 % (2.0-8.0); NEUTROPHILS # 2.6 10^3/uL (1.5-8.5); NEUTROPHILS % 51.8 % (36.0-66.0); PLATELET COUNT, AUTOMATED 502 10^3/uL (150-450); RED BLOOD COUNT 3.82 10^6/uL (4.30-6.10); WHITE BLOOD COUNT 5.1 10^3/uL (4.0-10.0)
[2023-02-16] MEDS: INSULIN LISPRO (NovoLOG) PER UNIT SC SCH ×2 (06:04→12:27)
[2023-02-16 06:28] LABS: ALBUMIN 2.6 G/DL (3.2-5.2); ALKALINE PHOSPHATASE 76 U/L (46-116); ALT/SGPT 86 U/L (7.0-40); AST/SGOT 90 U/L (<34); BILIRUBIN,TOTAL 1.2 MG/DL (0.3-1.2); BLOOD UREA NITROGEN 7 MG/DL (9-23); CALCIUM LEVEL 8.2 MG/DL (8.5-10.1); CARBON DIOXIDE LEVEL 26 MMOL/L (20-31); CHLORIDE LEVEL 107 MMOL/L (98-107); GLOMERULAR FILTRATION RATE > 60.0 (>60); GLUCOSE, FASTING 187 MG/DL (60-100); MAGNESIUM LEVEL 1.6 MG/DL (1.8-2.4); PHOSPHORUS LEVEL 3.5 MG/DL (2.5-4.9); POTASSIUM SERUM 3.7 MMOL/L (3.5-5.1); SODIUM LEVEL 141 MMOL/L (136-145); TOTAL PROTEIN 6.3 G/DL (5.7-8.2)
[2023-02-16] MEDS: ENOXAPARIN 30MG/0.3ML SYRINGE (J1650 PER 10MG) SC SCH (09:00)
[2023-02-16] MEDS: SUCRALFATE SUSP 1GM/10ML UD GT SCH ×2 (09:29→21:29)
[2023-02-16] MEDS: LACOSAMIDE 10MG/ML 20ML VIAL (VIMPAT) IV SCH ×2 (09:29→21:29)
[2023-02-16] MEDS: PANTOPRAZOLE 40MG VIAL IV SCH (09:29)
[2023-02-16] MEDS: PYRIDOXINE 50 MG TAB GT SCH (09:30)
[2023-02-16] MEDS: GABAPENTIN 100 MG CAP GT SCH ×2 (09:30→21:28)
[2023-02-16] MEDS: MAGNESIUM OXIDE 400MG TAB (MAG-OX) GT SCH ×2 (09:30→21:28)
[2023-02-16] MEDS: BACLOFEN 10 MG TAB GT SCH ×3 (09:30→21:28)
[2023-02-16] MEDS: COSOPT OCUMETER PLUS 10ML (DORZOLAMIDE/TIMOLOL) OS SCH ×2 (09:31→21:29)
[2023-02-16] MEDS: levETIRAcetam ORAL SOLUTION 500MG/5ML UDC GT SCH ×2 (09:33→21:28)
[2023-02-16] MEDS: MAG SULF 1GM/100ML (MAG RUN) 1 GM in IV 1 EA IV SCH ×3 (09:33→11:32)
[2023-02-16] MEDS: SODIUM CHLORIDE 0.9% INJ 10 ML SYR IV PRN ×2 (12:21→13:51)
[2023-02-16 14:00] VITALS: BP 140/90
[2023-02-16 20:19] VITALS: BP 120/71
[2023-02-16] MEDS: OMEPRAZOLE 20MG CAP XX SCH (21:27)
[2023-02-17 06:07] VITALS: BP 102/69
[2023-02-17] MEDS: SODIUM CHLORIDE 0.9% INJ 10 ML SYR IV SCH (06:10)
[2023-02-17 06:13] LABS: BASO # 0.1 10^3/uL (0.0-0.2); BASO % 1.1 % (0.0-1.0); EOS # 0.2 10^3/uL (0.0-0.5); EOS % 4.1 % (0.0-3.0); HEMATOCRIT 33.9 % (42.0-52.0); HEMOGLOBIN 10.5 g/dl (13.5-17.5); LYMPH # 1.7 10^3/uL (1.5-5.0); LYMPH % 39.1 % (24.0-44.0); MEAN CORPUSCULAR HEMOGLOBIN 26.9 pg (27.0-33.0); MEAN CORPUSCULAR VOLUME 86.7 fl (80.0-96.0); MONO # 0.6 10^3/uL (0.0-0.8); MONO % 13.6 % (2.0-8.0); NEUTROPHILS # 1.9 10^3/uL (1.5-8.5); NEUTROPHILS % 41.9 % (36.0-66.0); PLATELET COUNT, AUTOMATED 483 10^3/uL (150-450); RED BLOOD COUNT 3.91 10^6/uL (4.30-6.10); WHITE BLOOD COUNT 4.4 10^3/uL (4.0-10.0)
[2023-02-17 06:37] LABS: ALBUMIN 2.6 G/DL (3.2-5.2); ALKALINE PHOSPHATASE 93 U/L (46-116); ALT/SGPT 115 U/L (7.0-40); AST/SGOT 98 U/L (<34); BILIRUBIN,TOTAL 1.5 MG/DL (0.3-1.2); BLOOD UREA NITROGEN 6 MG/DL (9-23); CALCIUM LEVEL 9.1 MG/DL (8.5-10.1); CARBON DIOXIDE LEVEL 26 MMOL/L (20-31); CHLORIDE LEVEL 108 MMOL/L (98-107); CREATININE FOR GFR 0.57 MG/DL (0.70-1.30); GLOMERULAR FILTRATION RATE > 60.0 (>60); GLUCOSE, FASTING 125 MG/DL (60-100); MAGNESIUM LEVEL 1.9 MG/DL (1.8-2.4); POTASSIUM SERUM 3.7 MMOL/L (3.5-5.1); SODIUM LEVEL 141 MMOL/L (136-145); TOTAL PROTEIN 6.6 G/DL (5.7-8.2)
[2023-02-17] MEDS: ENOXAPARIN 30MG/0.3ML SYRINGE (J1650 PER 10MG) SC SCH (09:00)
[2023-02-17] MEDS: GABAPENTIN 100 MG CAP GT SCH (09:42)
[2023-02-17] MEDS: OMEPRAZOLE 20MG CAP XX SCH (09:42)
[2023-02-17] MEDS: PYRIDOXINE 50 MG TAB GT SCH (09:43)
[2023-02-17] MEDS: levETIRAcetam ORAL SOLUTION 500MG/5ML UDC GT SCH (09:43)
[2023-02-17] MEDS: MAGNESIUM OXIDE 400MG TAB (MAG-OX) GT SCH (09:43)
[2023-02-17] MEDS: SUCRALFATE SUSP 1GM/10ML UD GT SCH (09:43)
[2023-02-17] MEDS: BACLOFEN 10 MG TAB GT SCH (09:43)
[2023-02-17] MEDS: COSOPT OCUMETER PLUS 10ML (DORZOLAMIDE/TIMOLOL) OS SCH (09:44)
[2023-02-17] MEDS: LACOSAMIDE 10MG/ML 20ML VIAL (VIMPAT) IV SCH (09:44)
[2023-02-17] MEDS: SODIUM CHLORIDE 0.9% INJ 10 ML SYR IV PRN (09:44)
[2023-02-17] MEDS ORDERED: MAGN400T2 GT (10:45)
[2023-02-17] MEDS ORDERED: OMEP40CA4 GT (10:45)
[2023-02-17] MEDS ORDERED: SUCR1ORA GT (10:45)
[2023-02-17] MEDS ORDERED: SIME80TA16 GT (10:45)
== END 2023-02-17 13:09 | disposition home health service (06) | DRG 282 ==
LOC: M ED 09:30 → M ED INP 15:06 → ENRESERV 16:47 → M MSPAV 17:59 → M PCU 20:55 → M MSPAV 02-11 15:25
PROVIDERS: ADMIT Family Medicine; ATTEND Internal Medicine
PROC: 02HV33Z Insertion of Infusion Device into Superior Vena Cava, Percutaneous Approach (ICD-10-PCS; principal; 2023-02-01 16:00)
PROC: 3E0436Z Introduction of Nutritional Substance into Central Vein, Percutaneous Approach (ICD-10-PCS; 2023-02-08)
DX: K85.80 Other acute pancreatitis without necrosis or infection (principal); J96.01 Acute respiratory failure with hypoxia; J18.9 Pneumonia, unspecified organism; E87.20 Acidosis, unspecified; G80.0 Spastic quadriplegic cerebral palsy; K56.7 Ileus, unspecified; Z93.1 Gastrostomy status; E87.70 Fluid overload, unspecified; E83.42 Hypomagnesemia; K52.9 Noninfective gastroenteritis and colitis, unspecified; R33.9 Retention of urine, unspecified; E87.6 Hypokalemia; K63.89 Other specified diseases of intestine; G40.909 Epilepsy, unspecified, not intractable, without status epilepticus; H54.62 Unqualified visual loss, left eye, normal vision right eye; K21.9 Gastro-esophageal reflux disease without esophagitis; K29.80 Duodenitis without bleeding; G47.33 Obstructive sleep apnea (adult) (pediatric); J98.11 Atelectasis; N32.81 Overactive bladder; K86.2 Cyst of pancreas; K86.1 Other chronic pancreatitis; Z79.899 Other long term (current) drug therapy; Z88.6 Allergy status to analgesic agent; Z88.8 Allergy status to other drugs, medicaments and biological substances; Z91.040 Latex allergy status

== ENCOUNTER → 2023-03-11 | Outpatient (CLI) | payer MEDICAID ==
[~2023-03-11] MED LIST changes: +DICY10CA13 GT; +HM S0.65 NARES; +MAGN400T2 GT; +MULTLIQ7 PO; +OMEP40CA4 GT; +OSCAL GT; +PROBCAP14 PO; +PYRI50TA8 GT; +PYRIDOXINE GT; +SIME80TA16 GT; +[UNRECOGNIZED DRUG - OTHER] GT
[2023-03-11 19:25] LABS: BASO % 0.1 % (0.0-1.0); EOS # 0.1 10^3/uL (0.0-0.5); EOS % 0.7 % (0.0-3.0); HEMATOCRIT 41.7 % (42.0-52.0); HEMOGLOBIN 13.1 g/dl (13.5-17.5); LYMPH # 1.6 10^3/uL (1.5-5.0); MEAN CORPUSCULAR HEMOGLOBIN 25.1 pg (27.0-33.0); MEAN CORPUSCULAR HGB CONC 31.4 g/dl (32.0-36.5); MONO # 1.1 10^3/uL (0.0-0.8); MONO % 12.3 % (2.0-8.0); NEUTROPHILS # 6.1 10^3/uL (1.5-8.5); NEUTROPHILS % 68.6 % (36.0-66.0); PLATELET COUNT, AUTOMATED 342 10^3/uL (150-450); RED BLOOD COUNT 5.21 10^6/uL (4.30-6.10); WHITE BLOOD COUNT 8.9 10^3/uL (4.0-10.0)
[2023-03-11 19:47] LABS: ALBUMIN 2.6 G/DL (3.2-5.2); ALKALINE PHOSPHATASE 367 U/L (46-116); ALT/SGPT 206 U/L (7.0-40); AST/SGOT 274 U/L (<34); BILIRUBIN,TOTAL 2.9 MG/DL (0.3-1.2); BLOOD UREA NITROGEN 7 MG/DL (9-23); CALCIUM LEVEL 8.9 MG/DL (8.5-10.1); CARBON DIOXIDE LEVEL 23 MMOL/L (20-31); CHLORIDE LEVEL 104 MMOL/L (98-107); CREATININE FOR GFR 0.45 MG/DL (0.70-1.30); GLOMERULAR FILTRATION RATE > 60.0 (>60); GLUCOSE, FASTING 92 MG/DL (60-100); POTASSIUM SERUM 3.3 MMOL/L (3.5-5.1); SODIUM LEVEL 137 MMOL/L (136-145)
== END ==
LOC: M WUC 15:50
PROVIDERS: ATTEND Family Medicine
DX: R50.9 Fever, unspecified (principal); E87.6 Hypokalemia; E83.42 Hypomagnesemia